=== PATIENT | female | born 1965 | race Caucasian/White ===

== ENCOUNTER 2019-11-01 19:35 | Emergency (ER) | payer OTHER ==
[~2019-11-01] VITALS: Ht 160 cm; Wt 57.6 kg
[~2019-11-01 19:35] MED LIST: ALBUTEROL2.5 MG/3 M INH; CEFUROXIME500 MG PO; DILTIAZEM HCL60 MG PO; DOXYCYCLINE HY100 MG PO; FIORICET 50-301 EACH PO; FLAGYL500 MG PO; IBUPROFEN600 MG PO; IPRAT-ALBUT 0.5-3 ML INH; LIDOCAINE HCL30 M1 MM; NICOTINE LOZENGE4 MG BUCCAL; NORCO 5-325 TA1 EACH PO; OMEPRAZOLE20 MG PO; ONDANSETRON ODT4 MG SL; PREDNISONE20 MG PO; PROAIR HFA8.5 GM INH; ROBAFEN-DM SYR118 ML PO; SPIRIVA RESPIMAT4 GM IH; VENTOLIN HFA18 GM INH
--- OUTSIDE RECORDS SUMMARY | 2019-11-01 19:38 | XMS ---
PreManage Notification: ADRIEN ANTHONY Security Notched Blade Loader Events No recent Security Events currently on file CRITERIA MET - [facility] - 2 Visits in 30 Days CARE PROVIDERS WALDO PRATT Nurse Practitioner: Family Current PHONE: Unknown Juan Manuel Gil Primary Care Current PHONE: [phone] JUAN MANUEL GIL Primary Care Current PHONE: Unknown Inderjit has no Care Guidelines for this patient. Care History Medical/Surgical 10/26/2019 [facility] - CHW RECEIVED- CASE MANAGEMENT CONSULT TO HELP PATIENT WITH ESTABLISHING CARE WITH A PCP. - CHW CALLED 2X AND LEFT A VOICEMAIL. - SENT NO PCP LETTER TO PATIENT. E.D. VISIT COUNT (12 [address] 7 [facility] 2 JEAN[facility] Ortiz TOTAL 9 NOTE: Visits indicate total known visits. ED/UCC VISIT TRACKING (12 MO.) 11/01/2019 19:36 [facility] [place] TYPE: Emergency COMPLAINT: - SOB 10/23/2019 11:29 JEANINE Hong TYPE: Emergency COMPLAINT: - HEADACHE, DIZZINESS DIAGNOSES: - Other assisted (current) drug therapy - Migraine, unsp, not intractable, without status migrainosus - Essential (primary) hypertension - Allergy status to narcotic agent status - Chronic obstructive pulmonary disease, unspecified - Dizziness and giddiness - Nicotine dependence, unspecified, uncomplicated 08/10/2019 02:[place] DIAGNOSES: - foot pain - Sprain of unspecified ligament of right ankle, init encntr - Ankle Pain 06/02/2019 10:43 [place]: [place] DIAGNOSES: - neck pain 05/17/2019 17:51 [facility] TYPE: Emergency DIAGNOSES: - Strain of muscle, fascia and tendon at neck level, init - Neck pain 04/22/2019 16:47 [facility] TYPE: Emergency DIAGNOSES: - Lichen planus, unspecified - Female Genital Issue - Oth bacterial agents as the cause of diseases classd elswhr - Acute vaginitis - "brake out lots of pain" - Candidiasis of vulva and vagina 02/27/2019 07:20 [facility] TYPE: Emergency DIAGNOSES: - Lichen sclerosus et atrophicus - vaginal pain 12/12/2018 14:20 [facility] TYPE: Emergency DIAGNOSES: - fall - Contusion of right front wall of thorax, initial encounter - Back Pain 11/02/2018 08:16 [facility] TYPE: Emergency DIAGNOSES: - Unsp inj musc/tend the rotator cuff of r shoulder, init - Contusion of right shoulder, initial encounter - Shoulder Pain INPATIENT VISIT TRACKING (12 MO.) No inpatient visits to display in this time frame [id number]
[2019-11-01] MEDS ORDERED: ALBUTEROL2.5 MG/3 M INH ×2 (19:50→19:56)
[2019-11-01] MEDS ORDERED: MEDROL4 M1 PO (19:56)
[2019-11-01] MEDS ORDERED: VENTOLIN HFA18 GM INH (19:56)
[2019-11-01] MEDS ORDERED: ZITHROMAX250 MG PO (19:56)
--- NOTE | 2019-11-02 20:49 | EKG ---
[facility] [address] [place], [place] [address] Signed Normal sinus rhythm Possible Anterior infarct , age undetermined Abnormal ECG No previous ECGs available Confirmed by HERNANDEZ BURCH DO ([id number]) on 11/02/2019 8:49:36 PM Electronically Signed By: HERNANDEZ BURCH DO 11/02/19 2049 PATIENT NAME: ADREIN ANTHONY Electrocardiogram DATE OF : 63 PHYSICIAN: HERNANDEZ BURCH DO REPORT #: [id number] REPORT IS CONFIDENTIAL AND NOT TO BE RELEASED WITHOUT AUTHORIZATION
== END 2019-11-01 20:09 | disposition home or self-care (01) ==
LOC: ED 19:35
DX: J44.9 Chronic obstructive pulmonary disease, unspecified (principal); F17.210 Nicotine dependence, cigarettes, uncomplicated
CPT/HCPCS: 93005; 93010; 99283

== ENCOUNTER 2020-04-11 20:06 | Emergency (ER) | payer MEDICAID ==
[~2020-04-11] VITALS: Ht 160 cm; Wt 65.8 kg
--- OUTSIDE RECORDS SUMMARY | ~2020-04-11 | XMS | Encounter Summary ---
Demographics + + + | Address | [address] | | | [place] [address] | + + + | Home Phone | | + + + | Preferred Language | Unknown | + + + | Marital Status | Unknown | + + + | Hindu Affiliation | 1013 | + + + | Race | White | + + + | Ethnic Group | Not or | + + + Author + + + | Author | [facility] | | | and [place] | + + + | Organization | [facility] | | | and [place] | + + + | Address | Unknown | + + + | Phone | Unavailable | + + + Care Team Providers + +------+ + | Care Concrete Handler Name | Role | Phone | + +------+ + PCP | Unavailable | + +------+ + Encounter Details +--------+ + + + + | Date | Type | Department | Care Team | Description | +--------+ + + + + | 01/08/ | Hospital | [facility] | Conversion | ILD (interstitial | | 2016 | Encounter | [facility] [address] | Transaction, | lung disease) ([facility]) | | | | [address] | Provider Unknown | | | | | [place], [place] | [phone] | | | | | [address] | | | | | | [phone] | | | +--------+ + + + + Social History + +-------+ +--------+------+ | Tobacco Use | Types | Packs/Day | Years | Date | | | | | Used | | + +-------+ +--------+------+ | Former Smoker | | | | | + +-------+ +--------+------+ + + + | Sex Assigned at | Date Recorded | | | | + + + | Not on file | | + + + documented as of this encounter Plan of Treatment Not on filedocumented as of this encounter Procedures + +--------+ + + + | Procedure Name | Priori | Date/Time | Associated Diagnosis | Comments | | | ty | | | | + +--------+ + + + | CT CHEST HIGH | Routin | 01/09/2016 | | Results for this | | RESOLUTION WO | e | 3:10 PM | | procedure are in the | | CONTRAST | | PDT | | results section. | + +--------+ + + + documented in this encounter Results CT Chest High Resolution WO Contrast (01/09/2016 3:10 PM PDT) + + | Specimen | + + | | + + + + + | Impressions | Performed At | + + + | 1. Mild interlobular septal thickening and bronchial thickening | | | suggesting some mild/minimal interstitial lung disease. Correlate with | | | pulmonary function studies. | | + + + + + + | Narrative | Performed At | + + + | [facility] YE[facility] CT CHEST HIGH RESOLUTION 01/09/2016 HISTORY: 50 | | | years. Female. Interstitial lung disease Technique: A routine | | | examination of the chest with 5 thick slices at 5 mm intervals was | | | performed in the axial plane throughout the chest with the patient in | | | the supine position. After turning the patient to the prone | | | position, an inspiratory high-resolution examination was performed | | | with 1.25-mm thick slices at 10-mm intervals throughout the chest. An | | | expiratory phase examination was then performed with similar | | | technique. No intravenous contrast was administered. Radiation dose | | | reduction performed with automated exposure control. COMPARISON: | | | None at this facility FINDINGS: CHEST: The thyroid is | | | symmetric and shows no evidence of a solid or cystic mass. No bulky | | | adenopathy is seen in the lower rita stations of the neck, axillary | | | regions, mediastinum or hilar regions. A left-sided aortic arch is | | | noted with a 3 vessel arch configuration. No aneurysm is seen in the | | | aorta or great vessels. The pulmonary arteries are normal in | | | caliber. The heart is normal in size. No pericardial abnormality is | | | noted. Lungs are well expanded there is no infiltrate, effusion, | | | pneumothorax, pulmonary nodule or mass. There is minimal interlobular | | | septal thickening with a upper lobe predominance. There is some mild | | | lateral minimal bronchial thickening appears to be a small amount of | | | debris within the right middle lobe bronchus. There is no mosaic | | | attenuation on axial location images to suggest air trapping/small | | | airways disease. The thoracic esophagus is normal. No hiatal hernia | | | is seen. The muscles of the chest are symmetric. No focal atrophy | | | or soft tissue mass is seen. The osseous structures of the chest do | | | not demonstrate lytic or blastic lesions. Scan was continued into the | | | upper region of the abdomen there is no free air or free fluid. | | + + + + + | Procedure Note | + + | [place], Rad Conversion - 04/01/2019 6:02 PM PDT ADRIEN Jeff DWYERCT CHEST HIGH | | RESOLUTION01/09/2016 HISTORY: 50 years. Female. Interstitial lung diseaseTechnique: A | | routine examination of the chest with 5 thick slices at 5 mm intervals was performed in | | the axial plane throughout the chest with the patient in the supine position. After | | turning the patient to the prone position, an inspiratory high-resolution examination | | was performed with 1.25-mm thick slices at 10-mm intervals throughout the chest. An | | expiratory phase examination was then performed with similar technique. No intravenous | | contrast was administered.Radiation dose reduction performed with automated exposure | | control. COMPARISON:None at this facility FINDINGS: CHEST:The thyroid is symmetric and | | shows no evidence of a solid or cystic mass.No bulky adenopathy is seen in the lower | | rita stations of the neck, axillary regions, mediastinum or hilar regions.A left-sided | | aortic arch is noted with a 3 vessel arch configuration. No aneurysm is seen in the | | aorta or great vessels.The pulmonary arteries are normal in caliber.The heart is normal | | in size. No pericardial abnormality is noted.Lungs are well expanded there is no | | infiltrate, effusion, pneumothorax, pulmonary nodule or mass. There is minimal | | interlobular septal thickening with a upper lobe predominance. There is some mild | | lateral minimal bronchial thickening appears to be a small amount of debris within the | | right middle lobe bronchus. There is no mosaic attenuation on axial location images to | | suggest air trapping/small airways disease.The thoracic esophagus is normal. No hiatal | | hernia is seen.The muscles of the chest are symmetric. No focal atrophy or soft tissue | | mass is seen.The osseous structures of the chest do not demonstrate lytic or blastic | | lesions.Scan was continued into the upper region of the abdomen there is no free air or | | free fluid. IMPRESSION: 1. Mild interlobular septal thickening and bronchial thickening | | suggesting some mild/minimal interstitial lung disease. Correlate with pulmonary | | function studies. | |Scan was continued into the upper region of the abdomen there is no free air or free fluid. | | | |IMPRESSION: | |1. Mild interlobular septal thickening and bronchial thickening suggesting some mild/minim al interstitial lung disease. Correlate with pulmonary function studies. | | | | | + + documented in this encounter Visit Diagnoses + + | Diagnosis | + + | ILD (interstitial lung disease) (HCC) Postinflammatory pulmonary fibrosis | + + documented in this encounter"
--- OUTSIDE RECORDS SUMMARY | ~2020-04-11 | XMS | Encounter Summary ---
Demographics + + + | Address | [address] | | | [place] [address] | + + + | Home Phone | | + + + | Preferred Language | Unknown | + + + | Marital Status | Unknown | + + + | Oriental Orthodox Affiliation | 1013 | + + + | Race | White | + + + | Ethnic Group | Not or | + + + Author + + + | Author | [facility] | | | and [place] | + + + | Organization | [facility] | | | and [place] | + + + | Address | Unknown | + + + | Phone | Unavailable | + + + Care Team Providers + +------+ + | Care Environmental Lawyer Name | Role | Phone | + +------+ + | Malathi Dudley MD | PCP | | + +------+ + Encounter Details +--------+ + + + + | Date | Type | Department | Care Team | Description | +--------+ + + + + | 12/06/ | Orders Only | [facility] | Hong Rodríguez MD | | | 2015 | | [address] | [address] | | | | | [place], [place] | [address] [place], [place] | | | | | [address] | [address] | | | | | [phone] | | | +--------+ + + + [...] | + +--------+ + + + | CBC WITH MANUAL | Routin | 12/07/2015 | | Results for this | | DIFFERENTIAL | e | 11:33 AM | | procedure are in the | | | | PDT | | results section. | + +--------+ + + + | [id number]-[id number], | Routin | 12/07/2015 | | Results for this | | TOTAL | e | 11:33 AM | | procedure are in the | | | | PDT | | results section. | + +--------+ + + + | IMMUNOGLOBULIN E | Routin | 12/07/2015 | | Results for this | | | e | 11:33 AM | | procedure are in the | | | | PDT | | results section. | + +--------+ + + + | COMPREHENSIVE | Routin | 12/07/2015 | | Results for this | | METABOLIC PANEL | e | 11:33 AM | | procedure are in the | | | | PDT | | results section. | + +--------+ + + + documented in this encounter Results Mnfut-7-Cmcuuopzfng, Total (12/07/2015 11:33 AM PDT) + + + + + + | Component | Value | Ref Range | Performed | Pathologist | | | | | At | Signature | + + + + + + | A-1 | 190Comment: Testing | 100 - 200 mg/dL | EXTERNAL | | | Antitrypsin | performed at [facility], [address] | | LAB | | | | [facility] | | | | | | [place] [address] | | | | + + + + + + + + | Specimen | + + | Blood specimen | | (specimen) | + + + +---------+ + + | Performing | Address | City/State/Zipcode | Phone Number | | Organization | | | | + +---------+ + + | EXTERNAL LAB | | | | + +---------+ + + CBC with Manual Differential (12/07/2015 11:33 AM PDT) + + + + + + | Component | Value | Ref Range | Performed | Pathologist | | | | | At | Signature | + + + + + + | WBC | 13.67 (H) | 3.80 - 11.00 | EXTERNAL | | | | | 10*3/uL | LAB | | + + + + + + | Non- | 5.34 (H) | 3.70 - 5.10 | EXTERNAL | | | Red Blood | | 10*6/uL | LAB | | | Cells | | | | | | Counted | | | | | + + + + + + | Hemoglobin | 15.9 (H) | 11.3 - 15.5 | EXTERNAL | | | | | g/dL | LAB | | + + + + + + | Hematocrit, | 48.7 (H) | 34.0 - 46.0 % | EXTERNAL | | | POC | | | LAB | | + + + + + + | MCV | 91.2 | 80.0 - 100.0 fL | EXTERNAL | | | | | | LAB | | + + + + + + | MCH | 29.7 | 27.0 - 34.0 pg | EXTERNAL | | | | | | LAB | | + + + + + + | MCHC | 32.6 | 32.0 - 35.5 | EXTERNAL | | | | | g/dL | LAB | | + + + + + + | RDW-CV | 44.6 | 37 - 53 fL | EXTERNAL | | | | | | LAB | | + + + + + + | Platelet | 311 | 150 - 400 | EXTERNAL | | | Count | | 10*3/uL | LAB | | | Plasma | | | | | + + + + + + | MPV | 10.2 | fL | EXTERNAL | | | | | | LAB | | + + + + + + | Differentia | MANUAL | | EXTERNAL | | | l Type | | | LAB | | + + + + + + | Segmented | 62 | % | EXTERNAL | | | Neutrophils | | | LAB | | | Manual | | | | | + + + + + + | % Bands | 4 | % | EXTERNAL | | | | | | LAB | | + + + + + + | Lymphocytes | 23 | % | EXTERNAL | | | Manual | | | LAB | | + + + + + + | Monocytes | 5 | % | EXTERNAL | | | Manual | | | LAB | | + + + + + + | Eosinophils | 6 | % | EXTERNAL | | | Manual | | | LAB | | + + + + + + | Absolute | 8.48 (H) | 1.90 - 7.40 | EXTERNAL | | | Neutrophils | | 10*3/uL | LAB | | + + + + + + | Bands | 0.55 (H) | 0.00 - 0.20 | EXTERNAL | | | Manual | | 10*3/uL | LAB | | + + + + + + | Absolute | 3.14 | 1.00 - 3.90 | EXTERNAL | | | Lymphocytes | | 10*3/uL | LAB | | + + + + + + | Absolute | 0.68 | 0.00 - 0.80 | EXTERNAL | | | Monocytes | | 10*3/uL | LAB | | + + + + + + | Absolute | 0.82 (H) | 0.00 - 0.50 | EXTERNAL | | | Eosinophils | | 10*3/uL | LAB | | + + + + + + | RBC | RBC AND PLT MORPHOLOGY | | EXTERNAL | | | Morphology | APPEAR NORMAL | | LAB | | + + + + + + | RBC | Testing performed at | | EXTERNAL | | | Morphology | TCL;[address] | | LAB | | | | [address];[place] [address] | | | | + + + + + + + + | Specimen | + + | Blood specimen | | (specimen) | + + + +---------+ + + | Performing | Address | City/State/Zipcode | Phone Number | | Organization | | | | + +---------+ + + | EXTERNAL LAB | | | | + +---------+ + + Immunoglobulin E (12/07/2015 11:33 AM PDT) + + + + + + | Component | Value | Ref Range | Performed | Pathologist | | | | | At | Signature | + + + + + + | Immunoglobu | 155.0Comment: Testing | 0.0 - 158.0 | EXTERNAL | | | radha IgE | performed at [facility], [address] | | LAB | | | | [facility] | | | | | | [place] [address] | | | | + + + + + + + + | Specimen | + + | Blood specimen | | (specimen) | + + + +---------+ + + | Performing | Address | City/State/Zipcode | Phone Number | | Organization | | | | + +---------+ + + | EXTERNAL LAB | | | | + +---------+ + + Comprehensive Metabolic Panel (12/07/2015 11:33 AM PDT) + + + + + + | Component | Value | Ref Range | Performed | Pathologist | | | | | At | Signature | + + + + + + | Na | 140 | 135 - 143 | EXTERNAL | | | | | mmol/L | LAB | | + + + + + + | K | 3.9 | 3.5 - 4.9 | EXTERNAL | | | | | mmol/L | LAB | | + + + + + + | Cl | 99 | 99 - 109 mmol/L | EXTERNAL | | | | | | LAB | | + + + + + + | CO2 | 33 (H) | 23 - 32 mmol/L | EXTERNAL | | | | | | LAB | | + + + + + + | Anion Gap | 12 | 5 - 20 mmol/L | EXTERNAL | | | | | | LAB | | + + + + + + | Glucose, | 96 | 65 - 99 mg/dL | EXTERNAL | | | Fasting | | | LAB | | + + + + + + | BUN | 13 | 8 - 25 mg/dL | EXTERNAL | | | | | | LAB | | + + + + + + | Creatinine | 0.79 | 0.50 - 1.00 | EXTERNAL | | | | | mg/dL | LAB | | + + + + + + | BUN/Creatin | 16 | | EXTERNAL | | | ine Ratio | | | LAB | | + + + + + + | Calcium | 10.2 | 8.5 - 10.5 | EXTERNAL | | | | | mg/dL | LAB | | + + + + + + | Protein, | 6.8 | 6.3 - 8.2 g/dL | EXTERNAL | | | Total | | | LAB | | + + + + + + | Albumin | 4.6 | 3.6 - 5.0 g/dL | EXTERNAL | | | | | | LAB | | + + + + + + | Globulin | 2.2 | 1.3 - 4.9 g/dL | EXTERNAL | | | | | | LAB | | + + + + + + | A/G Ratio | 2.1 | 1.0 - 2.4 | EXTERNAL | | | | | | LAB | | + + + + + + | Bilirubin | 0.3 | 0.1 - 1.5 mg/dL | EXTERNAL | | | Total | | | LAB | | + + + + + + | ALP, | 72 | 35 - 115 U/L | EXTERNAL | | | External | | | LAB | | + + + + + + | AST | 21 | 10 - 45 U/L | EXTERNAL | | | | | | LAB | | + + + + + + | ALT | 27 | 10 - 65 U/L | EXTERNAL | | | | | | LAB | | + + + + + + | Estimated | >60Comment: GFR <60: | | EXTERNAL | | | GFR | CHRONIC KIDNEY DISEASE, | | LAB | | | | IF FOUND OVER A 3 MONTH | | | | | | PERIOD. GFR <15: KIDNEY | | | | | | FAILURE. FOR | | | | | | AMERICANS, MULTIPLY THE | | | | | | CALCULATED GFR BY | | | | | | 1.210.Testing performed | | | | | | at [facility];[address] | | | | | | [place] | | | | | | [address] | | | | + + + + + + + + | Specimen | + + | Blood specimen | | (specimen) | + + + +---------+ + + | Performing | Address | City/State/Zipcode | Phone Number | | Organization | | | | + +---------+ + + | EXTERNAL LAB | | | | + +---------+ + + documented in this encounter Visit Diagnoses Not on filedocumented in this encounter"
--- OUTSIDE RECORDS SUMMARY | ~2020-04-11 | XMS | Clinical Summary ---
Demographics + + + | Address | [address] | | | [place] [address] | + + + | Home Phone | | + + + | Preferred Language | Unknown | + + + | Marital Status | Unknown | + + + | Sabianist Affiliation | 1013 | + + + | Race | White | + + + | Ethnic Group | Not or | + + + Author + + + | Author | [facility] | | | and [place] | + + + | Organization | [facility] | | | and [place] | + + + | Address | Unknown | + + + | Phone | Unavailable | + + + Care Team Providers + +------+ + | Care Freight Brake Operator Name | Role | Phone | + +------+ + | Malathi Dudley MD | PCP | | + +------+ + Allergies Not on File Medications Not on file Active Problems Not on file Family History + + +------+ + | Medical History | Relation | Name | Comments | + + +------+ + | Emphysema | Father | | | + + +------+ + | Heart disease | Father | | | + + +------+ + | COPD | Mother | | | + + +------+ + + +------+ + + | Relation | Name | Status | Comments | + +------+ + + | Father | | Alive | | + +------+ + + | Father | | | | + +------+ + + | Mother | | | | + +------+ + + | Mother | | | | + +------+ + + Social History + +-------+ +--------+------+ [...] on file | | + + + Last Filed Vital Signs + + + + + | Vital Sign | Reading | Time Taken | Comments | + + + + + | Blood Pressure | 136/94 | 12/07/2015 10:07 AM | | | | | PDT | | + + + + + | Pulse | 93 | 12/07/2015 10:07 AM | | | | | PDT | | + + + + + | Temperature | 36.6 C (97.9 F) | 12/07/2015 10:07 AM | | | | | PDT | | + + + + + | Respiratory Rate | - | - | | + + + + + | Oxygen Saturation | - | - | | + + + + + | Inhaled Oxygen | - | - | | | Concentration | | | | + + + + + | Weight | 49.9 kg (110 lb 1.6 | 12/07/2015 10:07 AM | | | | oz) | PDT | | + + + + + | Height | 160 cm (5' 3") | 12/07/2015 10:07 AM | | | | | PDT | | + + + + + | Body Mass Index | 19.5 | 12/07/2015 10:07 AM | | | | | PDT | | + + + + + Plan of Treatment + + +-------+ + | Health Maintenance | Due Date | Last | Comments | | | | Done | | + + +-------+ + | Vaccine: | | | | | Dtap/Tdap/Td (1 - | 4 | | | | Tdap) | | | | + + +-------+ + | Cervical Cancer | | | | | Screening (Pap) | 5 | | | + + +-------+ + | Vaccine: Zoster (1 | | | | | of 2) | 5 | | | + + +-------+ + | Breast Cancer | | | | | Screening | 0 | | | + + +-------+ + | Vaccine: Influenza | | | | | (#1) | 0 | | | + + +-------+ + Results Not on filefrom Last 3 Months
[~2020-04-11 20:06] MED LIST changes: +MEDROL4 M1 PO; +ZITHROMAX250 MG PO
--- OUTSIDE RECORDS SUMMARY | 2020-04-11 20:08 | XMS ---
PreManage Notification: ADRIEN ANTHONY Security Onion Tier Events No recent Security Events currently on file CRITERIA MET - Group Notification CARE PROVIDERS WALDO PRATT Nurse Practitioner: Family Current PHONE: Unknown Inderjit has no Care Guidelines for this patient. Care History Medical/Surgical 10/26/2019 [facility] - W RECEIVED- CASE MANAGEMENT CONSULT TO HELP PATIENT WITH ESTABLISHING CARE WITH A PCP. - CHW CALLED 2X AND LEFT A VOICEMAIL. - SENT NO PCP LETTER TO PATIENT. Jon VISIT COUNT (12 MO.) 4 [facility] 3 [facility] TOTAL 7 NOTE: Visits indicate total known visits. ED/UCC VISIT TRACKING (12 MO.) 04/11/2020 20:06 [facility] [place] TYPE: Emergency COMPLAINT: - CHEST PAIN 11/01/2019 19:36 [facility] [place] TYPE: Emergency COMPLAINT: - SOB DIAGNOSES: - Nicotine dependence, cigarettes, uncomplicated - Shortness of breath - Chronic obstructive pulmonary disease, unspecified 10/23/2019 11:29 [facility] [place] TYPE: Emergency COMPLAINT: - HEADACHE, DIZZINESS DIAGNOSES: - Other exterminator (current) drug therapy - Migraine, unspecified, not intractable, without status migrai - Essential (primary) hypertension - Allergy status to narcotic agent status - Chronic obstructive pulmonary disease, unspecified - Dizziness and giddiness - Nicotine dependence, unspecified, uncomplicated 08/10/2019 02:53 [facility] TYPE: Emergency DIAGNOSES: - foot pain - Sprain of unspecified ligament of right ankle, initial encoun - Ankle Pain 06/02/2019 10:43 [facility] TYPE: Emergency DIAGNOSES: - neck pain 05/17/2019 17:51 [facility] TYPE: Emergency DIAGNOSES: - Strain of muscle, fascia and tendon at neck level, initial en - Neck pain 04/22/2019 16:47 [facility] TYPE: Emergency DIAGNOSES: - Lichen planus, unspecified - Female Genital Issue - Other specified bacterial agents as the cause of diseases cla - Acute vaginitis - "brake out lots of pain" - Candidiasis of vulva and vagina INPATIENT VISIT TRACKING (12 MO.) No inpatient visits to display in this time frame [id number]
[2020-04-11] MEDS ORDERED: BUDESONIDE-FO10.2 G1 INH (20:16)
[2020-04-11] MEDS ORDERED: DICLOFENAC SODI75 MG PO (21:31)
--- NOTE | 2020-04-12 12:30 | EKG ---
[facility] [address] [facility] [place] [address] Signed Normal sinus rhythm Anterior infarct (cited on or before 01-NOV-2019) Abnormal ECG When compared with ECG of 01-NOV-2019 19:45, No significant change was found Confirmed by JANIS LAKE MD ([id number]) on 04/12/2020 12:30:00 PM Electronically Signed By: JANIS LAKE MD 04/12/20 1230 PATIENT NAME: GABRIELLEADRIEN ZUÑIGA Electrocardiogram DATE OF : 63 PHYSICIAN: JANIS LAKE MD REPORT #: [id number] REPORT IS CONFIDENTIAL AND NOT TO BE RELEASED WITHOUT AUTHORIZATION
== END 2020-04-11 21:39 | disposition home or self-care (01) ==
LOC: ED 20:06
DX: R07.9 Chest pain, unspecified (principal); J44.9 Chronic obstructive pulmonary disease, unspecified; I10 Essential (primary) hypertension; F17.200 Nicotine dependence, unspecified, uncomplicated; Z79.899 Other long term (current) drug therapy
CPT/HCPCS: 71045; 80053; 83735; 84484; 85025; 93005; 93010; 96374; 99285-25; J1885

== ENCOUNTER 2022-01-16 16:32 | Inpatient (IN) | payer OTHER ==
[~2022-01-16] VITALS: Ht 160 cm; Wt 61.0 kg
[~2022-01-16 16:32] MED LIST changes: +BUDESONIDE-FO10.2 G1 INH; +DICLOFENAC SODI75 MG PO
[2022-01-16] MEDS ORDERED: ATORVASTATIN CA20 MG PO (18:07)
[2022-01-16] MEDS ORDERED: IBUPROFEN800 MG PO (18:07)
--- NOTE | 2022-01-16 23:07 | NUR ---
PATIENT ARRIVED TO THE FLOOR VIA STRETCHER. PATIENT ABLE TO AMBULATE FROM STRETCHER TO HOSPITAL BED. PATIENT SOB W/ACTIVITY. PATIENTS VITALS TAKEN AND RECORDED. PATIENT IS ON 2L VIA NC. PATIENTS IV FLUSHED AND IN FUSING PER ORDER. IV ABX INFUSING PER ORDER. PATIENT PROVIDED FRESH ICE WATER. NO FURTHER NEEDS NOTED. CALL LIGHT IN REACH. DISCUSSED PLAN OF CARE WITH PATIENT AND ALL QUESTIONS ANSWERED.
--- NOTE | 2022-01-17 00:02 | NUR ---
SCHEDULED KEDAR GIVEN PER ORDER. PATIENTS ABX COMPLETED INFUSING. PRIMARY IV FLUIDS INFUSING. PRN COUGH MEDICATION GIVEN PER ORDER.
--- NOTE | 2022-01-17 00:23 | NUR ---
IV PUMP WAS BEEPING, IT IS NOW INFUSING FINE. PT DENIES FURTHER NEEDS. CALL LIGHT IS CLOSE.
--- NOTE | 2022-01-17 00:41 | NUR ---
PATIENT ASSISTED TO THE RESTROOM A SBA. PATIENT ABLE TO VOID. PATIENT IS BACK IN BED RESTING. PATIENT DENIES ANY NEEDS. CALL LIGHT IN REACH. PATIENT REMAINS ON 2L VIA NC.
--- NOTE | 2022-01-17 01:38 | NUR ---
PATIENT ASSISTED TO THE RESTROOM A SBA. PATIENT ABLE TO VOID. PATIENT IS BACK IN BED RESTING. VITALS TAKEN AND RECORDED. INTAKE AND OUTPUT RECORDED. IV INFUSING PER ORDER. NO NEEDS NOTED. CALL LIGHT IN REACH.
--- NOTE | 2022-01-17 02:18 | NUR ---
PATIENT PROVIDED FRESH ICE WATER PER REQUEST. NO FURTHER NEEDS NOTED. CALL LIGHT IN REACH.
--- NOTE | 2022-01-17 03:39 | NUR ---
PATIENT IS RESTING IN BED WITH EYES CLOSED, RR 19. CALL LIGHT IN REACH.
--- NOTE | 2022-01-17 04:10 | NUR ---
RECEIVED REPORT, FROM JAVA J[employer]EE SOFTWARE ENGINEEROSMANY PRITCHARD. PT IS RESTING WITH EYES CLOSED, RR IS EVEN AND UNLABORED. CALL LIGHT IS CLOSE AND IV IS INFUSING FINE.
--- NOTE | 2022-01-17 06:01 | NUR ---
PT IS RESTING WITH EYES CLOSED, RR IS EVEN AND UNLABORED. CALL LIGHT IS CLOSE, IV IS INFUSING FINE.
--- NOTE | 2022-01-17 06:51 | NUR ---
call light answered, pt up sba to void and back to bed. 700mls output noted. pt back in bed, reports some sob w/ exertion, 94% on 2lnc. will continue to monitor-residing w/ deep breathing. prn tylenol given for reported 5/10 pain r/t headache. iv pump cleared, iv site wnl w/ fluids infusing as directed. no further needs, call light in reach.
--- NOTE | 2022-01-17 07:32 | NUR ---
REPORT RECEIVED FROM NIGHT RN - CARE PLAN REVIEWED.
[2022-01-17] MEDS ORDERED: IPRAT-ALBUT 0.5-3 ML INH (08:06)
[2022-01-17] MEDS ORDERED: AMITRIPTYLINE100 MG PO (08:07)
--- NOTE | 2022-01-17 08:10 | NUR ---
RN IN ROOM TO ADMINISTER SCHEDULED MEIDCAIOTNS - PT RESTING IN BED AWAKE UPON ENTRY. IV SITE TOLERATING FLUIDS AND ABX INFUSTION WITHOUT DIFFICULTY. PT UP TO BATHROOM, AMBULATING TO BATHROOM WITH STANDBY ASSIST - DENIES DIZZINESS, SOB NOTED - 2L VIA NC. HARSH HACKING COUGH NOTED WHICH PRODUCES A HEADACHE. VOIDING QS. CALL LIGHT IN REACH.
[2022-01-17] MEDS ORDERED: DAILY VALUE1 EACH PO (08:45)
[2022-01-17] MEDS ORDERED: DERMOPLAST FIRS78 GM TOP (08:49)
--- NOTE | 2022-01-17 10:32 | NUR ---
RN IN ROOM TO HANG NEW IV FLUID BAG. ABX INFUSION COMPLETE. PT REQUESTS PRN FOR COUGH - ADMINISTERED. PT DENIES FURTHER NEEDS. CALL LIGHT IN REACH.
--- NOTE | 2022-01-17 13:00 | NUR ---
INTO ROOM TO COMPLETE ASSESSMENT. PATIENT SITIING UP IN BED SPEAKING WITH HER FRIEND HENRIQUE AT THE BEDSIDE. PATIENT STATES SHE LIVES IN A HOME WITH HER DAUGHTER ARINA HASSAN. PATIENT PLANS TO DISCHARGE HOME WHEN STABLE. PATIENT DOES NOT REQUIRE DME AT THIS TIME. PATIENT IS ESTABLISHED WITH DR. ANGELO AND USES [facility]. SHE DENIES FINANCIAL NEEDS AT THIS TIME. PATIENT WISHES TO ADD FRIEND HENRIQUE MORRIS [phone] TO HER CONTACT IF WE ARE NOT ABLE TO REACH HER DAUGHTER.
--- NOTE | 2022-01-17 14:33 | NUR ---
RN IN ROOM TO ASSESS PT - AWAKE AND RESTING IN BED WATCHING TV. PRN COUGH MEDS REQUESTED AND ADMINISTERED. PT DENIES ANY FURTHER NEEDS. ASSESSMENT COMPLETE - UNCHANGED FROM PREVIOUS SHIFT. CALL LIGHT IN REACH.
--- NOTE | 2022-01-17 14:41 | NUR ---
MED REC COMPLETE
--- NOTE | 2022-01-17 18:16 | NUR ---
RN IN ROOM TO ADMINISTER SCHEDULED MEDS - PT RESTING IN BED WATCHING TV. CONTINUES TO HAVE 02 SAT IN MID 90'S ON 2L NC. EDUCATION PROVIDED REGARDING CAFFENIE AND HER INTAKE OF ENERGY DRINKS. PT DENIES FURTHER NEEDS, CALL LIGHT IN REACH.
--- NOTE | 2022-01-17 19:25 | NUR ---
SHIFT REPORT RECEIVED FROM RICHARD ROSSI. pt AWAKE AND RESTING IN BED, ON 2LNC. SBA TO VOID AND BACK TO BED, 300MLS OUTPUT NOTED. pt STATES, "I'M FEELING BETTER THAN I WAS EARLIER". IV SITE WNL, FLUIDS INFUSING DIRECTED. BRISK BLOOD RETURN NOTED. WILL CONTINUE TO MONITOR, CALL LIGHT IN REACH AND BOARD UPDATED.
--- NOTE | 2022-01-17 21:12 | NUR ---
ASSESSMENT COMPLETE, SCHEDULED MEDS GIVEN (SEE EMAR). pt AWAKE AND ALAERT IN BED. DRY OCCAS COUGH NOTED, SCATTERED EXP WHEEZES HEARD W/ AUSCULTATION, SCHEDULED BREATHING TREATMENT GIVEN. pt DENIES PAIN OR NAUSEA, VOIDING QS. VSS. REMAINS ON 2LNC, NO DISTRESS. CALL LIGHT IN REACH. WILL MONITOR FOR CHANGES.
--- NOTE | 2022-01-17 22:20 | NUR ---
PT CALLED D/T BEEPING IV PUMP, IT IS NOW INFUSING FINE. PT DENIES FURTHER NEEDS, CALL LIGHT IS CLOSE.
--- NOTE | 2022-01-17 23:03 | NUR ---
pt RESTING QUIETLY IN BED, 2LNC REMAINS IN PLACE. NO DISTRESS NOTED. CALL LIGHT IN REACH. RR EVEN AND UNLABORED.
--- NOTE | 2022-01-18 00:13 | NUR ---
ROUNDED ON pt, pt RESTING QUIETLY IN BED, AWOKE WHILE ASSESSING IV SITE. IV SITE WNL, pt DENIES PAIN AT SITE, FLUIDS INFUSING DIRECTED. 2LNC REMAINS IN PLACE, pt OFFERED SCHEDULED BREATHING TREATMENT- pt DECLINED. CALL LIGHT IN REACH.
--- NOTE | 2022-01-18 02:08 | NUR ---
IV PUMP ALARMING, ISSUE RESOLVED. IV SITE WNL, pt DENIES PAIN OR DISCOMFORT AT SITE. FLUIDS INFUSING DIRECTED. pt DENIES PAIN AND NAUSEA, TITRATED FROM 2LNC TO 1.5LNC, SPO2 UPPER 90'S. LIGHT SCATTERED EXP WHEEZES REMAINS NOTED, NO DISTRESS HOWEVER. pt INDEPENDENT IN ROOM. CALL LIGHT IN REACH.
--- NOTE | 2022-01-18 04:01 | NUR ---
ROUNDED ON pt, pt RESTING QUIETLY WITH EYES CLOSED, RR EVEN AND UNLABORED. NO DISTRESS NOTED. 1.5LNC REMAINS IN PLACE, CALL LIGHT AND OTHER BELONGINGS REMAINS IN REACH OF pt.
--- NOTE | 2022-01-18 04:06 | NUR ---
0400 BREATHING TREATMNET HELD pt IS SLEEPING.
--- NOTE | 2022-01-18 05:25 | NUR ---
rounded on pt, pt awake and resting in bed. titrated to 1lnc, educated on poc regarding oxygen therapy and plan to titrate to ra when able, pt verbalized understanding. iv site wnl, fluids infusing as directed. iv pump cleared. call light in reach and fresh coffee provided.
--- NOTE | 2022-01-18 07:20 | NUR ---
REPORT RECEIVED FROM NIGHT RN - CARE PLAN REVIEWED.
--- NOTE | 2022-01-18 09:30 | NUR ---
RN IN ROOM TO ASSESS PT AND ADMINISTER SCHEDULED MEDICATIONS. PT RESTING IN ROOM AWAKE, STATES SHE FEELS BETTER TODAY BUT IS SAD SHE WILL NOT BE DISCHARGED TODAY. PT TITRATED TO ROOM AIR FROM 1L. EDUCATED PT THAT SHE WILL NEED TO BE CAUTIOUS OF SOB/DIZZINESS WHILE AMBULATING TO BATHROOM. PT DENIES PAIN OR NEED FOR COUGHT PRN. IV SITE TOLERATING FLUIDS AND ABX WITHOUT DIFFICULTY. CALL LIGHT IN REACH.
--- NOTE | 2022-01-18 11:31 | NUR ---
RN AND STUDENT NURSE ROUNDING ON PT - SP02 93% ON ROOM AIR - NO DISTRESS NOTED, TALKING TO VISITORS.
--- NOTE | 2022-01-18 13:47 | NUR ---
RN IN ROOM TO IV SO PT CAN SHOWER. PT STABLE ON ROOM AIR SITH SP02 AT MID 90S.
[2022-01-18] MEDS ORDERED: BUDESONIDE-FO10.2 G1 INH (16:31)
[2022-01-18] MEDS ORDERED: OSELTAMIVIR PHO75 MG PO (16:31)
[2022-01-18] MEDS ORDERED: PREDNISONE20 MG PO (16:33)
--- NOTE | 2022-01-18 17:35 | NUR ---
RN IN ROOM TO ADMINISTER SCHEDULED MEDICATIONS. PT RESTING IN BED WATCHING TV AND EATING DINNER. STABLE ON ROOM AIR. DENIES FURTHER NEEDS, CALL LIGHT IN REACH.
--- NOTE | 2022-01-18 18:01 | NUR ---
RN IN ROOM TO ASSESS PT - PT JUST GETTING BACK TO BED FROM SHOWER. SOME SOB NOTED BUT SP02 IN MID 90'S ON ROOM AIR EVEN WITH AMBULATION. EXPIRATORY WHEEZES STILL NOTED IN LUNG BASES. PT DENIES PAIN. CALL LIGHT IN REACH.
--- NOTE | 2022-01-18 18:54 | NUR ---
PT USES CALL LIGHT TO REQUEST PRN FOR COUGH - ADMINISTERED. PT DENIES FURTHER NEEDS.
--- NOTE | 2022-01-18 19:20 | NUR ---
RECEIVED REPORT FROM ENID CERON DAYSDEFT. PT IN BED, WATCHING TV.
--- NOTE | 2022-01-18 22:00 | NUR ---
ROUNDING IN PT ROOM TO PASS HS MEDICATIONS, PT DENIES PAIN OR SIGNIFICANT COUGH, SHE SAID SHE WOULD LIKE A SPRITE THIS IS PROVIDED. NO OTHER CONCERNS, EDUCATION PROVIDED ON MEDICATIONS WITH QUESTIONS ANSWERED, ALSO DISCUSSED NASAL RINSES WITH SALINE FLUSH/RINSE WHEN ONE HAS NASAL CONGESTION, PT REPORTS HER DAUGHTER THAT LIVES WITH HER REMAINS WITH A LOW GRADE TEMP AND HAS NASAL CONGESTION WELL. PT JOKES AND LAUGHS WITH THIS RN, SHE REPORTS SHE FEELS SO MUCH BETTER.
--- NOTE | 2022-01-18 22:45 | NUR ---
ASSESSMENT COMPLETED. PT IN BED, HAD JUST FINISHED TALKING ON PHONE. EAGER TO BE DISCHARGED EARLY FRIDAY. IV SL, FLUSHES WELL, NO BLOOD RETURN. RA, DENIES ANY SOB, STATES SHE FEELS SO MUCH BETTER. APPRECIATES HER CARE. PLAN OF CARE DISCUSSED. PT ENCOURAGED TO CALL FOR COUGH MEDICINE NEEDED. DENIED SOB, IS INDEPENDENT IN ROOM. FRESH ICE WATER GIVEN. NO OTHER NEEDS AT THIS TIME.
--- NOTE | 2022-01-19 00:51 | NUR ---
PT REQUESTED WARM BLANKET, GIVEN. UP TO BATHROOM, VOIDED, STATES SHE HAS BEEN SLEEPING, BUT WOKE FOR THE BREATHING TREATMENT. PT AWARE THAT SHERRY WILL BE ASSUMING CARE. NO OTHER NEEDS AT THIS TIME.
--- NOTE | 2022-01-19 02:50 | NUR ---
PT RESTING ON HER RIGHT SIDE, RESP EVEN, REGULAR AT 18 BPM, NO DISTRESS NOTED. NO NEW CONCERNS AT THIS TIME.
--- NOTE | 2022-01-19 06:01 | NUR ---
PT ALERT AND ORIENTED THIS AM, NO NEW CONCERNS THIS SHIFT. PT LOOKING FORWARD TO POSSIBLE DISCHARGE TODAY. ROOM AIR, AFEBRILE, NO PAIN AND NO NAUSEA.
--- NOTE | 2022-01-19 07:29 | NUR ---
REPORT RECEIVED FROM NIGHT RN - CARE PLAN AND AM LABS REVIEWED.
[2022-01-19] MEDS ORDERED: OSELTAMIVIR PHO75 MG PO (09:22)
[2022-01-19] MEDS ORDERED: PREDNISONE20 MG PO (09:22)
--- NOTE | 2022-01-19 09:43 | NUR ---
RN IN ROOM TO ADMINISTER SCHEDULED MEDICATIONS AND ASSESS PT - PT RESTING IN BED WATCHING TV. PT STABLE ON ROOM AIR - EXPIRATORY WHEEZING NOTED IN BASES, NOT WORSENED. IV SITE TOLERATING ABX WITHOUT DIFFICULTY. PT EXCITED TO BE DC'D.
--- NOTE | 2022-01-19 10:25 | NUR ---
RN IN ROOM TO DC IV. IV SITE INFILTRATED QUICKLY AFTER ABX INFUSION STARTED. MD NOTIFIED AND DID NOT WISH TO REPEAT DOSE. STATES OK TO PULL IV. PT UP IN ROOM GETTING DRESSED. WAITING ON PHARMACY CONSULT.
--- NOTE | 2022-01-19 11:23 | NUR ---
RN IN ROOM TO PROVIDE DC EDUCATION. PT STATES UNDERSTANDING AND DENIES QUESTIONS AT THIS TIME. SPINNING FRAME CHANGER WHEELING PT OFF FLOOR.
== END 2022-01-19 11:25 | disposition home or self-care (01) | DRG 190 ==
LOC: ED 16:32 → MS 21:27
PROVIDERS: ADMIT Internal Medicine; ATTEND Internal Medicine
DX: J44.1 Chronic obstructive pulmonary disease with (acute) exacerbation (principal); J09.X1 Influenza due to identified novel influenza A virus with pneumonia; I10 Essential (primary) hypertension; E78.5 Hyperlipidemia, unspecified; Z87.2 Personal history of diseases of the skin and subcutaneous tissue; Z87.891 Personal history of nicotine dependence; Z90.49 Acquired absence of other specified parts of digestive tract; Z98.890 Other specified postprocedural states; Z98.51 Tubal ligation status; Z79.51 Long term (current) use of inhaled steroids; Z79.899 Other long term (current) drug therapy; Z20.822 Contact with and (suspected) exposure to COVID-19; F12.90 Cannabis use, unspecified, uncomplicated; G43.909 Migraine, unspecified, not intractable, without status migrainosus
CPT/HCPCS: 36415; 71045; 80048; 80053; 83605; 85025; 87502; 94640; 94760; 96374; 99285-25; A9270; C9803; J0456; J1650; J2920; J2930; J3480; J7060; J7512; U0003

== ENCOUNTER 2022-12-10 09:32 | Inpatient (IN) | payer OTHER ==
[~2022-12-10] VITALS: Ht 160 cm; Wt 62.3 kg
[~2022-12-10 09:32] MED LIST changes: +AMITRIPTYLINE100 MG PO; +ATORVASTATIN CA20 MG PO; +DAILY VALUE1 EACH PO; +DERMOPLAST FIRS78 GM TOP; +IBUPROFEN800 MG PO; +OSELTAMIVIR PHO75 MG PO
[2022-12-10] MEDS ORDERED: INCRUSE ELLI62.5 MCG IH (13:19)
--- NOTE | 2022-12-10 17:15 | NUR ---
PT ARRIVED TO ROOM 113 AT THIS TIME ALERT AND ORIENTED, SHE REPORTS NAUSEA AND PAIN IS MANAGED AT THIS TIME. SHE AMBULATED TO THE BATHROOM TO VOID. NO V/S STABLE
[2022-12-10 17:23] VITALS: BP 147/80
--- NOTE | 2022-12-10 19:34 | NUR ---
REPORT RECEIVED FROM OSMANY APODACA. pt RESTING IN BED AWAKE, VISITING WITH DAUGHTER. RATES PAIN 7/10 IN RUQ. IVF INFUSING WNL. CALL LIGHT IN REACH.
[2022-12-10 19:47] VITALS: BP 127/65
--- NOTE | 2022-12-10 20:10 | NUR ---
PRN PAIN MEDICATION ADMINISTERED FOR 7/10 REPORTED RUQ PAIN. ASSESSMENT COMPLETE. LIBRADO TONES ACTIVE X4, ABD SOFT, TENDER RUQ WITH PALPATION. WHEEZES AUSCULTATED THROUGHOUT LUNG LOBES. VSS. URINE HAT EMPTIED. PHONE CALL TO MD, TELEPHONE ORDER RECEIVED FOR IV POTASSIUM REPLACEMENT, REPEATED BACK TO VERIFY. RT IN ROOM FOR BREATHING TREATMENT. DAUGHTER AT BEDSIDE.
--- NOTE | 2022-12-10 20:24 | NUR ---
IV SITE ASSESSED, POTASSIUM RIDER INFUSING WNL. pt EDUCATION PROVIDED. CALL LIGHT IN REACH.
--- NOTE | 2022-12-10 21:27 | NUR ---
pt CALLS AND COMPLAINS OF PAIN AT IV SITE, SMALL BLEB NOTED ABOVE IV SITE, IVF AND K RIDER STOPPED. IV SITE D/C'D WNL. NEW 20 G IV STARTED RIGHT FOREARM WNL, pt TOLERATED WELL. IVF AND IV K RIDER INFUSING WNL ORDERED. SBA TO RESTROOM FOR VOID AND BACK TO BED. CALL LIGHT IN REACH.
--- NOTE | 2022-12-10 23:10 | NUR ---
pt RESTING IN BED, EYES CLOSED, BREATHING UNLABORED. IV POTASSIUM RIDER COMPLETE. IV ANTIBIOTIC ADMINISTERED. THIRD POTASSIUM RIDER INFUSING WNL. CALL LIGHT IN REACH.
--- NOTE | 2022-12-11 00:20 | NUR ---
pt RESTING IN BED WITH EYES CLOSED, BREATHING UNLABORED. IV POTASSIUM RIDER INFUSING WNL. NO DISTRESS NOTED. pt SHIFTING IN BED. CALL LIGHT IN REACH.
[2022-12-11 01:50] VITALS: BP 137/65
--- NOTE | 2022-12-11 02:01 | NUR ---
pt SLEEPING, AWAKENS TO VOICE. COMPLAINS OF 5/10 EPIGASTRIC PAIN. DESCRIBES DULL PAIN. ASSESSMENT COMPLETE. PRN PAIN MEDICATION ADMINISTERED REQUESTED BY pt. IVF INFUSING WNL. WARM BLANKET PROVIDED, TEMPERATURE IN ROOM ADJUSTED. CALL LIGHT IN REACH. pt DENIES TOILETING NEEDS.
--- NOTE | 2022-12-11 05:27 | NUR ---
CHECKED ON pt. RESTING IN BED WITH EYES CLOSED, SNORING. IVF INFUSING WNL. NO DISTRESS NOTED.
[2022-12-11 06:20] VITALS: BP 152/65
--- NOTE | 2022-12-11 06:41 | NUR ---
pt SLEEPING, AWAKENS TO VOICE. VSS. pt DENIES ANY PAIN. SBA TO RESTROOM FOR VOID. BACK IN BED, IV ANTIBIOTIC INFUSING WNL. WARM BLANKET PROVIDED. CALL LIGHT AND PERSONAL SUPPLIES IN REACH.
--- NOTE | 2022-12-11 07:22 | NUR ---
REPORT RECEIVED FROM WES CERON, ALL QUESTIONS ANSWERED. PT RESTING IN BED WITH EYES CLOSED, RESPIRATIONS EVEN AND UNLABORED. CALL LIGHT IN REACH.
--- NOTE | 2022-12-11 10:15 | NUR ---
MORNING ASSESSMENT COMPLETE. PT C/O 02/24 ABD PAIN, GIVEN PRN PAIN MEDICATION, SEE EMAR. ACTIVE BOWEL TONES. PT DENIES FURTHER NEEDS AT THIS TIME. CALL LIGHT IN REACH.
[2022-12-11] MEDS ORDERED: VENTOLIN HFA18 GM INH (10:18)
[2022-12-11 11:01] VITALS: BP 129/61
--- NOTE | 2022-12-11 12:43 | NUR ---
IN ROOM WITH DR ROMERO ROUNDING ON PT. PT STATES PAIN HAS IMPROVED SINCE PAIN MEDICATION ADMINISTRATION, SEE EMAR. PT DENIES FURTHER NEEDS AT THIS TIME. CALL LIGHT IN REACH.
[2022-12-11 13:51] VITALS: BP 131/62
--- NOTE | 2022-12-11 16:00 | NUR ---
Spoke with Shanell. She lives in house with her daughter. House does not have any steps. She states her daughter is very helpful to her. Pt works at [employer] and daughter works at [employer] as an aid. They split chores and costs. They both drive but do not have a car. Pt states she will no longer have food stamps after the end of this months. I gave her the names of food stock in our area. She has used [employer] in the past. She states financially they are ok as they share cost. Plans on dc to home when medically cleared.
[2022-12-11] MEDS ORDERED: ALBUTEROL2.5 MG/3 M NEB (16:11)
--- NOTE | 2022-12-11 16:53 | NUR ---
CALL LIGHT ANSWERED, PATIENT NEEDED ASSISTANCE WITH DINNER TRAY/TABLE. FRESH ICE WATER PROVIDED.
[2022-12-11 17:45] VITALS: BP 144/75
--- NOTE | 2022-12-11 19:52 | NUR ---
REPORT RECEIVED FROM OSMANY ZUNIGA. pt ITCHING ALL OVER BODY, SHIFTING IN BED. EFRAIN RECEIVED TELEPHONE ORDERS FOR PRN MEDICATION. TORADOL ADDED TO ALLERGY LIST. MEDICATION ADMINISTERED BY DAYSHIFT OSMANY ZUNIGA. DAUGHTER AT BEDSIDE.
[2022-12-11 20:02] VITALS: BP 124/68
--- NOTE | 2022-12-11 20:21 | NUR ---
pt RESTING IN BED. ASSESSMENT COMPLETE. pt RATES PAIN 5/10 IN EPIGASTRIC AREA. IV SITE FLUSHED WNL, BLOOD RETURN NOTED. IVF INFUSING WNL. JELLO PROVIDED. CALL LIGHT IN REACH.
--- NOTE | 2022-12-11 22:25 | NUR ---
IN ROOM FOR ANTIBIOTIC ADMINISTRATION. pt RESTING IN BED WITH EYES CLOSED. BREATHING UNLABORED. IV ANTIBIOTIC INFUSING WNL. pt STIRS SLIGHTLY WHEN RN EXPLAINS CARES, CLOSES EYES. CALL LIGHT WITHIN REACH. LIGHTS OFF IN ROOM.
--- NOTE | 2022-12-12 01:08 | NUR ---
pt RESTING IN BED, EYES CLOSED, RR 12, BREATHING UNLABORED. NO DISTRESS NOTED.
[2022-12-12 06:20] VITALS: BP 139/75
--- NOTE | 2022-12-12 06:41 | NUR ---
pt SLEEPING, AWAKENS TO VOICE. VSS. SBA TO RESTROOM FOR VOID AND BACK TO BED. pt RATES PAIN 6/10 IN EPIGASTRIC AREA. PRN PAIN MEDICATION ADMINISTERED. pt NPO. ASSESSMENT COMPLETE. NEW BAG IVF INFUSING WNL. CALL LIGHT IN REACH.
--- NOTE | 2022-12-12 07:33 | NUR ---
RECIEVED SHIFT REPORT. PT IS RESTING IN BED, EYES CLOSED, BREATHING EVEN AND UNLABORED. CALL LIGHT IN REACH.
[2022-12-12 09:28] VITALS: BP 123/82
--- NOTE | 2022-12-12 10:14 | NUR ---
MED REC COMPLETE
--- NOTE | 2022-12-12 11:00 | NUR ---
Spoke with Shanell, states she feels better, but pain cont. States she will have an EGD today. No need from CM at this time.
--- NOTE | 2022-12-12 11:54 | NUR ---
PT RESTING IN BED EYES CLOSED. BREATHING EVEN AND UNLABORED. CALL LIGHT IN REACH
--- NOTE | 2022-12-12 12:56 | NUR ---
PT RESTING IN BED, EYES CLOSED, BREATHING EVEN AND UNLABORED. CALL LIGHT IN REACH
[2022-12-12 13:58] VITALS: BP 129/63
--- NOTE | 2022-12-12 15:52 | NUR ---
12/12/22 1552 Aysha Romero 1548- PT ARRIVES TO PACU REACTIVE TO VOICE. PT EASILY FALLS BACK TO SLEEP WHEN NOT BEING TALKED TO. RESP EVEN AND UNLABORED. OXYGEN SAT LOW 90'S ON RA. 1551- PT ENOCURAGED TO TAKE DEEP BREATHS. PT IS ABLE TO GET A COUPLE OF DEEP BREATHS COMPLETED BEFORE FALLING BACK TO SLEEP.
--- NOTE | 2022-12-12 16:25 | NUR ---
PT RETURNED TO ROOM FROM SURGERY, BEDSIDE REPORT RECIEVED FROM OSMANY العلي. VSS. PAIN 4/10, TOLERABLE. BOWEL TONES ACTIVE IN ALL QUADRANTS, NON TENDER. PT ABLE TO AMBULATE SBA, TO BATHROOM. CALL LIGHT IN REACH.
[2022-12-12 18:14] VITALS: BP 153/63
--- NOTE | 2022-12-12 19:05 | NUR ---
REPORT RECEIVED FORM OSMANY JONES. PT SITTING UP IN BED ON CELL PHONE. PT DENIES ANY NEEDS AT THIS TIME. CALL LIGHT IN REACH.
[2022-12-12 21:48] VITALS: BP 147/68
--- NOTE | 2022-12-12 21:55 | NUR ---
IN TO ADMINISTER MEDICATION. PT RESPONDS WHEN ADDRESSED. VITALS AND I&Os COMPLETE. ASSESSMENT COMPLETE. PT REPORTING PAIN 1/10 AND DENIES ANY PAIN MEDICATION WHEN OFFERED. LUNG SOUNDS CLEAR. BOWEL TONES ACTIVE. PT REPORTS ABD TENDERNESS WITH PALPATION ON RUQ AND LUQ. BURN HELIO NOTED TO PTs RIGHT ARM. PT STATES "I BURNT MYSELF ON A AZEVEDO AT WORK." BRUISE NOTED TO PTs LEFT FOREARM PT STATES "THAT IS FROM THEM DRAWING BLOOD." WATER PROVIDED. PT REQUESTING PUDDING AND CRACKERS, PUDDING AND CRACKERS PROVIDED. PT DENEIS ANY OTHER NEEDS AT THIS TIME. CALL LIGHT IN REACH.
--- NOTE | 2022-12-12 22:30 | NUR ---
IN PT IV PUMP ALARMING, RESOLVED. PT DENIES ANY NEEDS AT THIS TIME. CALL LIGHT IN REACH.
--- NOTE | 2022-12-12 23:58 | NUR ---
IN TO ANSWER CALL LIGHT. IV PUMP ALARMING, RESOLVED. PT DENIES ANY OTHER NEEDS AT THIS TIME. CALL LIGHT IN REACH.
[2022-12-13] VITALS (9 sets, daily range): BP systolic 137–162; BP diastolic 63–81
--- NOTE | 2022-12-13 00:05 | NUR ---
pt MADE NPO AT THIS TIME. LIQUIDS REMOVED PER MD ORDER, pt VERBALIZED UNDERSTANDING. pt UP INDEPENDENTLY TO VOID, INDEPENDENT IN ROOM. NO SLIP SOCKS IN PLACE.
--- NOTE | 2022-12-13 02:22 | NUR ---
IN TO OBTAIN VITALS. PT RESTING IN BED WITH EYES CLOSED. RR EVEN AND UNLABORED. PT AWAKENS WHEN ADDRESSED. PT REQUESTING TOILTEING. PT AMBULATED WITH STEADY GAIT TO RESTROOM AND BACK TO BED. PT REPORTING PAIN 6/10 IN UPPER ABD. PT REQUESTING PRN PAIN MEDICATION. PRN PAIN MEDICATION ADMINISTRED, SEE MAR. ASSESSMENT COMPLETE. LUNG SOUNDS INSPIRATORY WHEEZE THROUGHOUT ALL LOBES. BOWEL TONES ACTIVE. PT REPORTS ABD TENDERNESS WITH PALPATION TO UPPER ABD. VITALS AND I&Os COMPLETE. PT DENIES ANY OTHER NEEDS AT THIS TIME. CALL LIGHT IN REACH.
--- NOTE | 2022-12-13 05:31 | NUR ---
IN TO ADMINISTER MEDICATION, SEE MAR. VITALS AND I&Os COMPLETE. PT REPORTS PAIN 11/25. PT DENIES PRN PAIN MEDICATION WHEN OFFERED. PT AMBULATES TO RESTROOM AND BACK TO BED WITH STEADY GAIT. CONSENT FORM SIGNED. PT DENIES ANY OTHER NEEDS AT THIS TIME. CALL LIGHT IN REACH.
--- NOTE | 2022-12-13 06:08 | NUR ---
IN TO ANSWER CALL LIGHT. IV PUMP ALARMING, RESOLVED. PT DENIES ANY OTHER NEEDS AT THIS TIME. PT LAYING IN BED AND CLOSES EYES. RR EVEN AND UNLABORED. CALL LIGHT IN REACH.
--- NOTE | 2022-12-13 07:56 | NUR ---
RECIEVED BEDSIDE REPORT FROM OSMANY ALVAREZ. PT IS SLEEPING SOUNDLY. NO NEEDS AT THIS TIME. PT CALLED DURING ROUNDS, C/O SEVERE PAIN AFTER COUGHING. ROUNDED WITH DR ROMERO. HE IS PLANNING ON SURGERY TODAY. WILL GET SHOWER AND WIPE DOWN COMPLETE.
--- NOTE | 2022-12-13 09:15 | NUR ---
PT CALL LIGHT ON. PUMP ALARMING, IV FLUIDS COMPLETE. IV ASSESSED, WNL. NEW IV FLUID BAG HUNG. PT RPEORTS ABDOMINAL PAIN AT 2/10 THAT IS "PRETTY GOOD RIGHT NOW." PT DENIES NEED FOR ADDITIONAL PAIN MEDICATION. PTS PRIMARY RN UPDATED. NO ADDITIONAL REQUESTS OR COMPLAINTS. CALL LIGHT WITHIN REACH. BED RAILS UP.
--- NOTE | 2022-12-13 10:41 | NUR ---
PT IS DOING PRE-OP WIPE DOWN WITH MOTOR RACER.
--- NOTE | 2022-12-13 10:53 | NUR ---
PT FINISHED WITH WIPE DOWN AND SHOWER. IV ASSESSED, WNL, IV FLUIDS RESTARTED. PT DENIES ADDITIONAL REQUESTS OR COMPLAINTS. CALL LIGHT WITHIN REACH. BED RAILS UP.
--- NOTE | 2022-12-13 12:20 | NUR ---
PT IS SLEEPING QUIETLY. RESP EVEN AND UNLABORED. DID NOT WAKE TO ME AT THE DOOR.
--- NOTE | 2022-12-13 13:51 | NUR ---
PER LIZ CHAPMAN RN, PATIENT HAS NOT YET GONE TO THE OR. NO CHANGE IS DISCHARGE PLAN AT THIS TIME.
--- NOTE | 2022-12-13 14:08 | NUR ---
MEDICATION DUE. PT UPDATED REGARDING PLAN OF CARE. PT VERALIZES UNDERSTANDING AND STATES HER QUESTIONS HAVE BEEN ANSWERED. PT DENIES ADDITIONAL REQUESTS OR COMPLAINTS. CALL LIGHT WITHIN REACH. BED RAILS UP. PT REPORTS PAIN IS WELL CONTROLLED.
--- NOTE | 2022-12-13 17:33 | NUR ---
PT IS AWAKE AND ALERT, PLAYING GAMES WITH HER DAUGHTER. IS ANXIOUS FOR SURGERY, ADVISED WE WILL LET HER KNOW PLAN SOON WE KNOW.
--- NOTE | 2022-12-13 19:22 | NUR ---
PT WENT TO SURGERY AT 1805. NPO ALL DAY. A & O. NO COMPLAINTS.
--- NOTE | 2022-12-13 19:28 | NUR ---
Received bedside report from offgoing shift, hourly rounding initiated.
--- NOTE | 2022-12-13 20:10 | NUR ---
pt ARRIVED TO [facility] FLOOR, pt AWAKE AND INTERACTIVE WITH GLUE REEL OPERATOR. VSS, pt ON RA. RR EVEN AND UNLABORED. PRIMARY RN LAVON IN ROOM TO RECEIVE BEDSIDE REPORT. CALL LIGHT IN REACH.
--- NOTE | 2022-12-13 20:36 | NUR ---
12/13/222035 Mary Copeland 1920 PT ARRIVED TO PACU WITH ORAL AIRWAY IN PLACE, RESP EVEN AND UNLABORED. PT NONAROUSABLE WITH 6L VIA MASK IN PLACE. 1927 PT REACTIVE TO TACTILE STIMULI AND STARTS MOVING HER HEAD. 1930 PT STARTS REACHING FOR HER FACE AND ORAL AIRWAY REMOVED, PT START MOANING AND ROLLING TO RIGHT SIDE. PT GRABBING HER ABD AND NODS "YES" TO PAIN. 1934 PAIN MEDICATION GIVEN PER EMAR. 1935 PT GRABBING AT O2 MASK, O2 REMOVED. 1939 PT ASLEEP AND RN WAKES PT OFF AND ON AND ENCOURAGES DEEP BREATHING, PT FALLS RIGHT BACK TO SLEEP, PT UNABLE TO RATE PAIN AT THIS TIME. O2 NC PLACE WITH CO2 MONITOR. NO MOANING OR GRIMACING NOTED. 1940 MD AT BEDSIDE TALKING TO PT, PT UNABLE TO REMAIN AWAKE AND FALLS BACK TO SLEEP WHILE MD IS TALKING.
--- NOTE | 2022-12-13 20:58 | NUR ---
pt CONNECTED TO CPOX, ON RA. SPO2 AND HR WNL. NEW BAG IV FLUIDS HUNG AND INFUSING DIRECTED. CALL LIGHT IN REACH. FAMILY ALSO IN ROOM.
--- NOTE | 2022-12-13 22:00 | NUR ---
GAG REFLEX INTACT, pt REQUESTING WATER AND JELLO-BOTH PROVIDED. pt UP SBA TO BSC TO VOID. VOIDED 300MLS. SCD'S BACK IN PLACE AND CALL LIGHT IN REACH.
--- NOTE | 2022-12-13 22:11 | NUR ---
IN PT ROOM FOR ROUNDING, MEDICATION ADMINISTRATION, ASSESSMENT, VS. PT HAS NO COMPLAINT OF PAIN, IS MEDICATION COMPLIANT, CALL LIGHT IN REACH.
--- NOTE | 2022-12-13 23:51 | NUR ---
IN PT ROOM FOR ROUNDING. PT RESTING ON BACK, REQUESTING PUDDING, PROVIDED. PT HAS NO COMPLAINT OF PAIN, HAS CALL LIGHT IN REACH
--- NOTE | 2022-12-14 00:38 | NUR ---
IN PT ROOM FOR ROUNDING. PT RESTING ON BACK, EYES CLOSED, BREATHING EVEN AND UNLABORED, NO INDICATION OF PAIN OR DISCOMFORT. PT HAS CALL LIGHT IN REACH
[2022-12-14 01:33] VITALS: BP 129/65
--- NOTE | 2022-12-14 01:37 | NUR ---
IN pt room for rounding. Pt up to the restroom, minor complaint of pain, requesting tylenol, provided. Pt ambulates without issue, call light in reach
--- NOTE | 2022-12-14 03:21 | NUR ---
IN pt room for rounding. Pt resting on back, eyes closed, breathing even and unlabored, CPOX in place. Pt has no indication of or complaint of pain or discomfort, call light in reach.
[2022-12-14 05:41] VITALS: BP 152/72
--- NOTE | 2022-12-14 06:04 | NUR ---
IN pt room for rounding. Pt resting on back, eyes closed, breathing evne and unlabored. Pt has no indication of pain or discomfort, call light in reach.
--- NOTE | 2022-12-14 07:22 | NUR ---
RECIEVED BEDSIDE REPORT FROM [facility]. PT IS SLEEPING SOUNDLY, DID NOT WAKE TO OPENING DOOR. BREATHING EVEN AND UNLABORED. NOC RN REPORTED SHE TOLERATED PUDDING WELL OVERNIGHT, ADVANCED TO REGULAR DIET THIS AM. 4 LAP SITES ARE C/D/I.
--- NOTE | 2022-12-14 09:47 | NUR ---
PT IS RESTING IN BED. TOLERATED REGULAR BREAKFAST WELL. NO C/O NAUSEA. PO PAIN MEDICATIONS EFFECTIVE. NO NEEDS AT THIS TIME.
[2022-12-14 09:58] VITALS: BP 130/69
--- NOTE | 2022-12-14 10:46 | NUR ---
PT IS WALKING IN THE LY. INSTRUCTED TO STOP IF SHE FEELS FAINT, LIGHTHEADED, NAUSEOUS, OR PAINFUL. SHE AGREED.
[2022-12-14] MEDS ORDERED: OXYCODON-ACETA1 EAC2 PO (11:15)
[2022-12-14] MEDS ORDERED: ACETAMINOPHEN500 MG PO (11:15)
--- NOTE | 2022-12-14 12:03 | NUR ---
DISCHARGE TEACHING COMPLETE. PHARMACY IN IN ROOM AT THIS TIME. PT VERBALIZED UNDERSTANDING OF PLAN AT THIS TIME.
--- NOTE | 2022-12-16 16:00 | PATH ---
[facility] [address] [facility] [place], [place] [address] Signed SPECIMEN(S): A DUODENAL BIOPSY SPECIMEN(S): B ANTRUM/PYLORUS BIOPSY SPECIMEN(S): C LOWER ESOPHAGEAL BIOPSY SPECIMEN(S): D MIDDLE ESOPHAGEAL BIOPSY SPECIMEN SOURCE: A. DUODENAL BIOPSY B. ANTRUM/PYLORUS BIOPSY C. LOWER ESOPHAGEAL BIOPSY D. MIDDLE ESOPHAGEAL BIOPSY CLINICAL HISTORY: Acute upper epigastric and RUQ abdominal pain. FINAL PATHOLOGIC DIAGNOSIS: A. Duodenal biopsy: - Benign duodenal mucosa, negative for specific diagnostic abnormality. B. Antrum / pylorus biopsy: - Superficial chronic gastritis. - A Helicobacter pylori immunostain is positive for organisms. C. Lower esophageal biopsy: - Benign esophageal mucosa with increased epithelial eosinophils (up to 16 per HPF). - Negative for glandular mucosa. - See comment. D. Mid esophageal biopsy: - Benign esophageal mucosa, negative for increased epithelial eosinophils. COMMENT: Increased epithelial eosinophils at the gastroesophageal junction can be seen with reflux esophagitis and eosinophilic esophagitis. Clinical correlation is requested. JVR:calos:C2NR MICROSCOPIC EXAMINATION: Histologic sections of all submitted blocks are examined by light microscopy. These findings, together with the gross examination, support the pathologic diagnosis. A Helicobacter pylori immunostain is performed with appropriate positive and negative controls on block (B1) and is positive for organisms. JVR:calos PATIENT NAME: ADRINE YEH PATHOLOGY DATE OF : 63 REPORT #: [id number] PHYSICIAN: KEKE PATHOLOGY PCP: CLEM ANGELO MD REPORT IS CONFIDENTIAL AND NOT TO BE RELEASED WITHOUT AUTHORIZATION [facility] [address] [place], [place] [address] Signed GROSS DESCRIPTION: A. The specimen, labeled and designated "Yeh, duodenum biopsy," is received in formalin and consists of two molina soft tissue fragments measuring up to 0.1 cm. Entirely submitted in (A1). B. The specimen, labeled and designated "Yeh, antrum biopsy," is received in formalin and consists of two molina soft tissue fragments, ranging from 0.1-0.2 cm. Entirely submitted in (B1). C. The specimen, labeled and designated "Yeh, lower esophagus biopsy," is received in formalin and consists of one molina soft tissue fragment, 0.5 cm. Entirely submitted in (C1). D. The specimen, labeled and designated "Yeh, middle esophagus biopsy," is received in formalin and consists of one molina soft tissue fragment, 0.2 cm. Entirely submitted in (D1). JS (under the direct supervision of a pathologist) The Gross Description was prepared using a voice recognition system. The report was reviewed for accuracy; however, sound-alike word errors, addition and/or deletions may occur. If there is any question about this report, please contact Client Services. ADDITIONAL NOTES: Immunohistochemical and/or in situ hybridization studies were performed on this case with the appropriate positive controls that react as expected. This test was developed and its performance characteristics determined by [facility]. It has not been cleared or approved by the U.S. Food and Drug Administration. The FDA has determined that such clearance or approval is not necessary. This test is used for clinical purposes. It should not be regarded as investigational or for research. [facility] is certified under the Clinical Laboratory Improvement Amendments of 1988 (CLIA) as qualified to perform high complexity clinical laboratory testing. This assay has not been validated for specimens that have been decalcified. PERFORMING LABORATORY: The technical component was performed by [facility], [address] [place] [address], [place] [address] (CLIA# [id number]). Professional interpretation was performed by [facility], [address] [place], [place] [address]e., [place] [address] (CLIA#: [id number]). Diagnostician: Chicho Brian MD PATIENT NAME: ADRIEN YEH PATHOLOGY DATE OF : 63 REPORT #: [id number] PHYSICIAN: KEKE PATHOLOGY PCP: CLEM ANGELO MD REPORT IS CONFIDENTIAL AND NOT TO BE RELEASED WITHOUT AUTHORIZATION [address] [place] [address] Signed Pathologist Electronically Signed 12/16/2022 Copies: ~ PATIENT NAME: ADRIEN YEH PATHOLOGY DATE OF : 63 REPORT #: [id number] PHYSICIAN: KEKE WHITNEY PCP: CLEM ANGELO MD REPORT IS CONFIDENTIAL AND NOT TO BE RELEASED WITHOUT AUTHORIZATION
--- NOTE | 2022-12-16 18:30 | DS ---
[facility] [address] [place], [place] [address] Signed ADMISSION DATE: 12/13/2022 DISCHARGE DATE: 12/14/2022 REASON FOR ADMISSION: Right upper abdominal pain. HISTORY OF PRESENT ILLNESS: This 57-year-old white woman presented to the emergency room, was evaluated by Dr. Wright with severe epigastric and right subcostal pain. Clinical findings were highly suggestive of acute cholecystitis. The patient has distant history of appendectomy as well as ovarian cystic resection on the right side. The patient has a daughter, who is known to me, who underwent appendectomy and cholecystectomy. After a prolonged workup and found to have acalculous cholecystitis. Emergency room evaluation included lab studies showing a normal white count and liver enzymes and amylase and a CT, which was without sign of stones within the gallbladder and no intrahepatic ductal dilatation though the pancreatic duct was considered slightly dilated at 3 mm. There was no evidence of pancreatitis. An ultrasound was additionally performed which showed no sludge or gallstones. Given her severe tenderness, inability to tolerate oral intake, and so fourth she was admitted to undergo further evaluation. PERTINENT PHYSICAL EXAMINATION: GENERAL: Showed a pleasant white woman who looks uncomfortable but not systemically toxic. HEENT: Trachea is midline. CHEST: Clear. HEART: Regular without murmur. ABDOMEN: Soft and nondistended. There is marked tenderness in the epigastric and right subcostal area. LABORATORY DATA: White count was 10.1, hematocrit 37.1, platelets 203,000, electrolytes normal except for potassium 3.3. Liver enzymes normal. Lactic acid is 1.7. HOSPITAL COURSE: She was admitted, given intravenous fluids and active observation undertaken. Her symptoms are highly suggestive of acalculous cholecystitis. A CCK-HIDA test was performed which showed an ejection fraction of 62% and without reproduction of her symptoms particularly. Mindful of possibility of peptic disease upper endoscopy was Electronically Signed By: ALICIA ROMERO MD 12/16/22 1990 PATIENT NAME: ADRIEN ANTHONY DISCHARGE SUMMARY DATE OF : 63 REPORT #: [id number] PHYSICIAN: ALICIA ROMERO MD PCP: MEGHANA ANGELO MD REPORT IS CONFIDENTIAL AND NOT TO BE RELEASED WITHOUT AUTHORIZATION [facility] [address] [place], [place] [address] Signed performed on December 12, 2022, which was normal. Mindful of the uncertainty of her diagnosis, but additionally aware of her family history with several family members with acalculous cholecystitis in the past she was offered a laparoscopic cholecystectomy. This was performed on December 13, 2022. She was found to have a chronically inflamed, somewhat distended and enlarged gallbladder. Cholangiogram was normal. The mucosa of the gallbladder showed chronic inflammatory change, but no evidence of stones or neoplasm. The following day, she was perfectly fine, tolerating regular diet without her preoperative pain. Incisional pain was well managed with oral analgesics. She was discharged to home in improved condition. DISCHARGE MEDICATIONS: Include: 1. Percocet 7.5/325, one to two p.o. q.6 hours p.r.n. pain #10. 2. Tylenol 500 mg two tablets p.o. q.6 hours as needed for lesser pain #30. She was not prescribed Motrin as she does have allergy to aspirin-like compounds. 3. She will continue usual medication of atorvastatin 20 mg p.o. daily. 4. Ipratropium. 5. Albuterol inhaler four times a day as needed for shortness of breath. 6. Multivitamin one tablet p.o. daily. 7. Incruse Ellipta 62.5 one puff daily, albuterol, Ventolin inhaler two puffs q.4 hours as needed for shortness of breath. DISCHARGE DIAGNOSIS: 1. Severe right subcostal pain, ultimately consistent with acalculous cholecystitis, status post laparoscopic cholecystectomy with intraoperative cholangiogram December 13, 2022. 2. Reactive airways disease, chronic obstructive pulmonary disease. 3. Family history of acalculous cholecystitis and extensive biliary disease. 4. Dyslipidemia. FOLLOWUP PLAN: She will return to see me in approximately four weeks. She will call next week to arrange an appointment in the office. She is to avoid lifting more than 20 pounds for two weeks and to keep Steri-Strips on. Alicia Romero MD Electronically Signed By: ALICIA ROMERO MD 12/16/221829 PATIENT NAME: ADRIEN ANTHONY DISCHARGE SUMMARY DATE OF : 63 REPORT #: [id number] PHYSICIAN: ALICIA ROMERO MD PCP: MEGHANA ANGELO MD REPORT IS CONFIDENTIAL AND NOT TO BE RELEASED WITHOUT AUTHORIZATION [address] [address] Signed ALYCE/JOSEPH /[id number] cc: MD Meghana Davidson MD Copies: MEAGHAN WRIGHT MD ~ Electronically Signed By: ALICIA ROMERO MD 12/16/22 1830 PATIENT NAME: ADRIEN ANTHONY DISCHARGE SUMMARY DATE OF : 63 REPORT #: [id number] PHYSICIAN: ALICIA ROMERO MD PCP: MEGHANA ANGELO MD REPORT IS CONFIDENTIAL AND NOT TO BE RELEASED WITHOUT AUTHORIZATION
--- NOTE | 2022-12-16 18:30 | OR ---
[facility] [place] [facility] [address] [place], [place] [address] Signed DATE OF OPERATION: 12/12/2022 SURGEON: Alicia Romero MD PREOPERATIVE DIAGNOSIS: Persistent right subcostal and epigastric pain, negative workup for biliary disease. POSTOPERATIVE DIAGNOSIS: Normal esophagus, stomach and duodenum. PROCEDURE: Esophagogastroduodenoscopy with biopsy. ANESTHESIA: Intravenous sedation; fentanyl 100 mcg and Versed 3 mg. INDICATION: This 57-year-old white woman was admitted to the hospital having presented to the emergency room with severe subcostal and epigastric pain highly suggestive of acute cholecystitis. Evaluation by Dr. Wright included a CT scan which was negative and an ultrasound showing no stones. She was admitted by me to the hospital, given intravenous fluids, IV antibiotics and a presumptive diagnosis of acalculous cholecystitis. Notably, her daughter had similar presentation in the distant past with a negative workup for the gallbladder, ultimately undergoing cholecystectomy with complete resolution of her symptoms and findings of acute acalculous cholecystitis. Yesterday, she underwent a CCK-HIDA test, which showed an ejection fraction of 62% (normal) and no reproduction of her symptoms with injection of CCK hormone. On that basis, consideration was made this may represent a peptic problem. Notably, she has been treated with Pepcid intravenously since admission. The risk of bleeding, infection, and perforation related to upper endoscopy were reviewed with her. She understands and wished to proceed. FINDINGS: A normal study was noted. The esophagus, stomach and duodenum were normal. Flap valve was normal. Biopsies were taken nevertheless. CLOtest was negative 20 minutes post procedure. DESCRIPTION OF PROCEDURE: The patient was brought to the surgical endoscopy suite and placed in the lateral Electronically Signed By: ALICIA ROMERO MD 12/16/22 1830 PATIENT NAME: ADRIEN ANTHONY OPERATIVE REPORT DATE OF : 63 REPORT #: [id number] PHYSICIAN: ALICIA ROMERO MD PCP: MEGHANA CASIANO MD REPORT IS CONFIDENTIAL AND NOT TO BE RELEASED WITHOUT AUTHORIZATION [facility] [place] [facility] [address] [place], [place] [address] Signed decubitus position, given intravenous sedation to the point of slurred speech and nystagmus with full cardiopulmonary monitoring. Topical lidocaine hypopharyngeal anesthesia had been administered. A bite block was placed. An Olympus video upper endoscope was passed in the hypopharynx. The vocal cords were normal. The scope was advanced to the esophagus, throughout its length it was normal. Scope was passed to the stomach, which was insufflated with air. There was no sign of bile or inflammatory change in any way. There is certainly no sign of ulceration. The pylorus was normal. Scope was passed into the duodenum, which was normal. Biopsies were taken of the duodenum to assess for celiac disease. The scope was withdrawn and no ulcerative changes were noted of the duodenum nor of the antrum. The antrum was biopsied for both LILA and pathologic testing. Retroflexed view confirmed a normal-appearing flap valve. The scope was withdrawn to the distal esophagus where biopsies were obtained of the distal esophageal mucosa and further withdrawn to the midesophagus allowing for biopsy as well. Withdrawal of scope showed no other findings. She was taken to the recovery room in good condition. CONCLUDING DIAGNOSIS: Normal-appearing upper endoscopy. PLAN: Most likely her persistent symptoms are related to acalculous cholecystitis despite the aforementioned workup which is negative. We will offer the patient laparoscopic cholecystectomy on the high probability this will be curative to her symptoms. Additional evaluation of other intra-abdominal organs will be undertaken at that point. The patient has already undergone appendectomy and right ovarian cyst resection in the distant past. MD ALYCE Caldwell/ARIELLAL /[id number] cc: Meghana Casiano MD Electronically Signed By: ALICIA ROMERO MD 12/16/22 1830 PATIENT NAME: ADRIEN ANTHONY OPERATIVE REPORT DATE OF : 63 REPORT #: [id number] PHYSICIAN: ALICIA ROMERO MD PCP: MEGHANA CASIANO MD REPORT IS CONFIDENTIAL AND NOT TO BE RELEASED WITHOUT AUTHORIZATION [facility] [place] [facility] [address] [place] [address] [place], [place] [address] Signed Copies: ~ Electronically Signed By: ALICIA ROMERO MD 12/16/22 183 PATIENT NAME: ADRIEN ANTHONY OPERATIVE REPORT DATE OF : 63 REPORT #: [id number] PHYSICIAN: ALICIA ROMERO MD PCP: MEGHANA CASIANO MD REPORT IS CONFIDENTIAL AND NOT TO BE RELEASED WITHOUT AUTHORIZATION
--- NOTE | 2022-12-16 18:30 | OR ---
[facility] [address] [place], [place] [address] Signed DATE OF OPERATION: 12/13/2022 SURGEON: Alicia Romero MD PREOPERATIVE DIAGNOSIS: Acute acalculous cholecystitis. POSTOPERATIVE DIAGNOSIS: Acute acalculous cholecystitis. PROCEDURES: 1. Laparoscopic cholecystectomy with intraoperative cholangiogram. 2. Surgeon-directed fluoroscopy. ANESTHESIA: General endotracheal; Darek Siemens, [employer], and 10 mL of 0.25% Marcaine with epinephrine. INDICATIONS: This 57-year-old white woman was admitted to the emergency room on 10 December 2022 with severe epigastric and right subcostal pain. Her evaluation in the emergency room included a CT scan, which was normal. An ultrasound following which showed no sign of gallstones. Still her symptoms were highly suggestive of acute cholecystitis. Notably, the patient's daughter is well known to me, who presented in a similar way in the past, ultimately undergoing cholecystectomy curative to her symptoms. The patient was admitted, given intravenous antibiotics and observation, which showed persistence of her symptoms. On that basis, she underwent a CCK-HIDA test which was negative (ejection fraction 62% without reproduction of her symptoms). An upper endoscopy was performed yesterday, which showed absolutely no abnormality of the esophagus, stomach, or duodenum and CLOtest was negative. Given the findings and in light of her family history, I have offered cholecystectomy preferred by laparoscopic approach. The risk of bleeding, infection, bile duct injury, most importantly failure to cure her symptoms was reviewed in detail. She understands and wished to proceed. FINDINGS: The gallbladder was chronically inflamed and floppy. It was not tense, distended, or acutely inflamed particularly. The liver was normal. The stomach and duodenum were normal as well. Intraoperative cholangiography showed no filling defect or distal common duct abnormality particularly. Electronically Signed By: ALICIA ROMERO MD 12/16/22 1830 PATIENT NAME: ADRIEN ANTHONY OPERATIVE REPORT DATE OF : 63 REPORT #: [id number] PHYSICIAN: ALICIA ROMERO MD PCP: CLEM ANGELO MD REPORT IS CONFIDENTIAL AND NOT TO BE RELEASED WITHOUT AUTHORIZATION [facility] [address] [place], [place] [address] Signed DESCRIPTION OF PROCEDURE: The patient was brought to the operating room, given a general endotracheal anesthetic. Preoperative antibiotic Ancef was given in the operating room. The abdomen was prepared with a chlorhexidine solution and draped sterilely after satisfactory general endotracheal anesthesia. Infraumbilical incision was made and using an open Leigh cannula technique, pneumoperitoneum was achieved to a level of 14 mmHg of carbon dioxide gas. Intra-abdominal inspection showed no sign of ascites or carcinomatosis. The gallbladder was floppy and chronically inflamed. Three additional trocars were placed in usual configuration in the subxiphoid, right midclavicular, and right anterior axillary line. The gallbladder was elevated cephalad and retracted laterally. Given her thin body habitus, easy identification of common bile duct and cystic duct was noted. A slightly enlarged pericholecystic lymph node was also noted. Using blunt and electrocautery dissection, the triangle of Calot was dissected free. A dominant cystic arterial branch was doubly clipped and divided as was the subsequent other such branch. Once a critical view of safety was achieved and clear identification of cystic duct undertaken, a clip was applied across gallbladder cystic duct junction. A transverse choledochotomy was made in the cystic duct, which allowed for egress of clear bile. Using the Ku type cholangiocatheter, intraoperative cholangiography was undertaken. Several views were required, ultimately showing opacification of the common bile duct with prompt emptying into the duodenum. There was no filling defects, biliary anomalies, or other problem. Notably, the area in the region of the cystic duct was somewhat hazy as there was some spillage, but there was no obvious proximal ductal problem. The catheter was removed, the cystic duct was triply clipped and divided. The gallbladder dissected free in a retrograde fashion using electrocautery. Gallbladder was placed in an Endobag as there was one small rent in the gallbladder that allowed for some spillage of bile. The gallbladder was extracted through the infraumbilical port site, opened on the back table and found to have chronic inflammatory change, but no sign of stone or neoplasm. Irrigation was undertaken in subhepatic space. There was no sign of bile leak, bleeding, or other problems. Excess irrigation fluid was suctioned free. The trocars removed under direct visualization showing no sign of bleeding. The infraumbilical fascial incision reapproximated with interrupted 0-Vicryl suture. All wounds were infiltrated with 0.25% Marcaine with epinephrine. The skin was then closed with interrupted 3-0 Vicryl. Steri-Strips were applied. The patient was ultimately extubated and transferred to the recovery room in good condition having suffered no complications. Sponge, needle, and instrument counts reported as correct x3. Alicia Romero MD Electronically Signed By: ALICIA ROMERO MD 12/16/22 1830 PATIENT NAME: ADRIEN ANTHONY OPERATIVE REPORT DATE OF : 63 REPORT #: [id number] PHYSICIAN: ALICIA ROMERO MD PCP: CLEM ANGELO MD REPORT IS CONFIDENTIAL AND NOT TO BE RELEASED WITHOUT AUTHORIZATION [address] [place] [address] Signed /JOSEPH /[id number] cc: MD Hira Khan MD Copies: HIRA MONAE MD ~ Electronically Signed By: ALICIA ROMERO MD 12/16/22 1830 PATIENT NAME: ADRIEN ANTHONY OPERATIVE REPORT DATE OF : 63 REPORT #: [id number] PHYSICIAN: ALICIA ROMERO MD PCP: CLEM ANGELO MD REPORT IS CONFIDENTIAL AND NOT TO BE RELEASED WITHOUT AUTHORIZATION
--- NOTE | 2022-12-16 18:30 | HP ---
[facility] [address] [place], [place] [address] Signed ADMISSION DATE: 12/10/2022 TIME: 3:25 p.m. PROBLEM: Severe right upper abdominal pain, probable acalculous cholecystitis. HISTORY OF PRESENT ILLNESS: This is a 57-year-old white woman, who works at the [employer] [place]. She took time off work and presented to the emergency room where she was evaluated by Dr. Wright with severe epigastric and right subcostal pain. The patient has a distant history of appendectomy as well as ovarian cystic resection in the past. Notably, her daughter is known to me having undergone appendectomy and cholecystectomy. Evaluation by Dr. Wright included lab studies showing a normal white count and liver enzymes and amylase. A CT scan was performed, which showed no stones within the gallbladder itself and no intrahepatic ductal dilatation. The pancreatic duct was considered slightly dilated at 3 mm; there is no evidence of acute pancreatitis from a CT scan perspective. PAST MEDICAL HISTORY: Notable for COPD, hypertension as well as hyperlipidemia. She has also had lichen sclerosis syndrome. PAST SURGICAL HISTORY: Include tubal , appendectomy, tonsillectomy, and right ovarian cyst resection. ALLERGIES: She has no known drug allergies. MEDICATIONS: Include albuterol, diclofenac recently discontinued, atorvastatin and ibuprofen. PHYSICAL EXAMINATION: GENERAL: This is a pleasant white woman, who looks somewhat uncomfortable but not systemically toxic. NECK: Trachea is midline. CHEST: Clear. HEART: Regular without murmur. ABDOMEN: Soft and nondistended. There is marked tenderness in the epigastric and to less extent in the right upper quadrant area. Electronically Signed By: ALICIA ROMERO MD 12/16/22 5980 PATIENT NAME: ADRIEN ANTHONY HISTORY AND PHYSICAL DATE OF : 63 REPORT #: [id number] PHYSICIAN: ALICIA ROMERO MD PCP: CLEM ANGELO MD REPORT IS CONFIDENTIAL AND NOT TO BE RELEASED WITHOUT AUTHORIZATION [facility] [address] [place], [place] [address] Signed EXTREMITIES: Show no clubbing, cyanosis, or edema. LAB STUDIES: Show white count of 10.1, hematocrit 37.1, platelets 203,000. Electrolytes are normal except for potassium of 3.3, creatinine is 0.84. Liver enzymes are normal. Lactic acid level is 1.7. ASSESSMENT: The patient has clinical evidence of acute cholecystitis despite CT scan finding showing no sign of acute inflammation. Additional information includes the patient has not smoked in over a year related to underlying COPD. Family history does include influenza A in a daughter in the hospital. An ultrasound was additionally performed, which showed no evidence of stones, but did show pancreatic duct dilatation of 3 mm. Given her clinical findings highly suggestive of acute cholecystitis probably acalculous, I would recommend admission to the hospital, IV fluids and further evaluation and observation. She may require cholecystectomy for acalculous cholecystitis depending on the evolution of her symptoms. The possibility of doing a CCK-HIDA test if the diagnosis remains uncertain would be considered as well. MD ALYCE Caldwell/JOSEPH /[id number] cc: MD Hira Khan MD Copies: HIRA WRIGHT MD ~ Electronically Signed By: ALICIA ROMERO MD 12/16/22 1830 PATIENT NAME: ADRIEN ANTHONY HISTORY AND PHYSICAL DATE OF : 63 REPORT #: [id number] PHYSICIAN: ALICIA ROMERO MD PCP: CLEM ANGELO MD REPORT IS CONFIDENTIAL AND NOT TO BE RELEASED WITHOUT AUTHORIZATION
== END 2022-12-14 12:15 | disposition home or self-care (01) | DRG 419 ==
LOC: ED 09:32 → MS 09:34
PROVIDERS: ADMIT Surgery; ATTEND Surgery
PROC: 0DB68ZX Excision of Stomach, Via Natural or Artificial Opening Endoscopic, Diagnostic (ICD-10-PCS; 2022-12-12)
PROC: 0DB98ZX Excision of Duodenum, Via Natural or Artificial Opening Endoscopic, Diagnostic (ICD-10-PCS; 2022-12-12)
PROC: 0DB38ZX Excision of Lower Esophagus, Via Natural or Artificial Opening Endoscopic, Diagnostic (ICD-10-PCS; 2022-12-12)
PROC: BF502Z0 Other Imaging of Bile Ducts using Fluorescing Agent, Intraoperative (ICD-10-PCS; 2022-12-13)
PROC: 0FT44ZZ Resection of Gallbladder, Percutaneous Endoscopic Approach (ICD-10-PCS; principal; 2022-12-13 13:30)
DX: K81.0 Acute cholecystitis (principal); I10 Essential (primary) hypertension; Z20.822 Contact with and (suspected) exposure to COVID-19; E78.5 Hyperlipidemia, unspecified; J44.9 Chronic obstructive pulmonary disease, unspecified; F17.200 Nicotine dependence, unspecified, uncomplicated; Z90.49 Acquired absence of other specified parts of digestive tract; Z90.89 Acquired absence of other organs; Z98.890 Other specified postprocedural states; Z79.899 Other long term (current) drug therapy
CPT/HCPCS: 36415; 74177; 74300; 76705; 78227; 80053; 83690; 85025; 94640; 94760; 96375; 96376; 99285-25; A9270; A9537; J0690; J1100; J1170; J1200; J1644; J1885; J2001; J2250; J2270; J2405; J2704; J2805; J3010; J3480; J7121; Q9967; U0003

== ENCOUNTER 2022-12-29 09:16 | Emergency (ER) | payer OTHER ==
[~2022-12-29] VITALS: Ht 160 cm; Wt 63.9 kg
[~2022-12-29 09:16] MED LIST changes: +ACETAMINOPHEN500 MG PO; +ALBUTEROL2.5 MG/3 M NEB; +INCRUSE ELLI62.5 MCG IH; +OXYCODON-ACETA1 EAC2 PO
--- OUTSIDE RECORDS SUMMARY | 2022-12-29 09:18 | XMS ---
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 Care History Medical/Surgical 04/12/2020 [facility] Patient seen after clinic hours.\T\nbsp; No follow up visit scheduled at this time. 04/12/2020 [facility] - Patient is currently established with [facility]. If patient is seen in the ED during business hours. Please contact [facility] at [facility]. Care Recommendation: If this patient has had 5 or more Emergency Department visits in the last 12 months.\T\nbsp; Patient will require education on the scope and purpose of the ED as an acute care provider not a Primary Care Provider and should not be utilized for chronic conditions.\T\nbsp; These are guidelines and the provider should exercise clinical judgment when providing care. E.D. VISIT COUNT (12 MO.) 4 [facility]. TOTAL 4 NOTE: Visits indicate total known visits. ED/UCC VISIT TRACKING (12 MO.) 12/29/2022 09:17 [facility] [place] TYPE: Emergency COMPLAINT: - L WRIST INJURY 12/10/2022 09:33 [facility] [place] TYPE: Emergency COMPLAINT: - PAIN UNDER R BREAST RIB CAGE 09/29/2022 10:15 [facility] [place] TYPE: Emergency COMPLAINT: - NECK PAIN/INJURY 01/16/2022 16:33 [facility] [place] TYPE: Emergency COMPLAINT: - DIFFICULTY BREATHING INPATIENT VISIT TRACKING (12 MO.) 12/13/2022 13:50 [facility] [place] TYPE: Medical Surgical COMPLAINT: - ACUTE UPPER EPIGASTRIC AND RIGHT UPPER QUADRANT PA DIAGNOSES: - Acquired absence of other organs - Acquired absence of other organs - Acquired absence of other specified parts of digestive tract - Acquired absence of other specified parts of digestive tract - Acute cholecystitis - Acute cholecystitis - Chronic obstructive pulmonary disease, unspecified - Chronic obstructive pulmonary disease, unspecified - Contact with and (suspected) exposure to COVID-19 - Contact with and (suspected) exposure to COVID-19 - Essential (primary) hypertension - Essential (primary) hypertension - Hyperlipidemia, unspecified - Hyperlipidemia, unspecified - Left upper quadrant pain - Nicotine dependence, unspecified, uncomplicated - Nicotine dependence, unspecified, uncomplicated - Other intermediate card tender (current) drug therapy - Other intermediate card tender (current) drug therapy - Other specified postprocedural states - Other specified postprocedural states 01/16/2022 21:27 [facility] TYPE: Medical Surgical COMPLAINT: - ACUTE EXACERBATION OF COPD, INFLUENZA A DIAGNOSES: - Acquired absence of other specified parts of digestive tract - Acquired absence of other specified parts of digestive tract - Cannabis use, unspecified, uncomplicated - Cannabis use, unspecified, uncomplicated - Chronic obstructive pulmonary disease with (acute) exacerbation - Chronic obstructive pulmonary disease with (acute) exacerbation - Contact with and (suspected) exposure to COVID-19 - Contact with and (suspected) exposure to COVID-19 - Essential (primary) hypertension - Essential (primary) hypertension - Hyperlipidemia, unspecified - Hyperlipidemia, unspecified - Influenza due to identified novel influenza A virus with pneumonia - Influenza due to identified novel influenza A virus with pneumonia - Influenza due to identified novel influenza A virus with pneumonia - custodial (current) use of inhaled steroids - custodial (current) use of inhaled steroids - Migraine, unspecified, not intractable, without status migrainosus - Other intermediate card tender (current) drug therapy - Other intermediate card tender (current) drug therapy - Other specified postprocedural states - Other specified postprocedural states - Personal history of diseases of the skin and subcutaneous tissue - Personal history of diseases of the skin and subcutaneous tissue - Personal history of nicotine dependence - Personal history of nicotine dependence - Tubal ligation status - Tubal ligation status [email or web address]
[2022-12-29 11:08] VITALS: BP 157/99
== END 2022-12-29 11:08 | disposition home or self-care (01) ==
LOC: ED 09:16
DX: S63.502A Unspecified sprain of left wrist, initial encounter (principal); W19.XXXA Unspecified fall, initial encounter; I10 Essential (primary) hypertension; J44.9 Chronic obstructive pulmonary disease, unspecified; E78.5 Hyperlipidemia, unspecified; F17.200 Nicotine dependence, unspecified, uncomplicated; Z88.5 Allergy status to narcotic agent; Z79.899 Other long term (current) drug therapy
CPT/HCPCS: 73110

== ENCOUNTER 2023-09-08 09:27 | Emergency (ER) | payer OTHER ==
[~2023-09-08] VITALS: Ht 160 cm; Wt 62.1 kg
[2023-09-08 09:42] LABS: BASOPHILS 0.6 % (0-2); EOSINOPHILS 2.6 % (0-6); HEMATOCRIT 40.7 % (35.0-50.0); HEMOGLOBIN 13.5 g/dL (12.0-18.0); LYMPHOCYTES 11.2 % (24-44); MCH 29.3 (27-36); MCHC 33.2 g/dl (30-36); MCV 88.3 fl (81-99); MONOCYTES 10.1 % (0-12); NEUTROPHILS 75.5 % (39-80); PLATELET COUNT 251 K/uL (140-440); RBC 4.61 M/ul (4.3-5.7); RDW 13.8 (10.5-15.0)
[2023-09-08] MEDS ORDERED: SERTRALINE HCL50 MG PO (09:48)
[2023-09-08 10:04] LABS: ALBUMIN 3.6 g/dL (3.4-5.0); ALBUMIN/GLOBULIN RATIO 0.97 (1.1-2.4); ANION GAP 12.8 (7-21); BILIRUBIN, TOTAL 0.2 ng/dL (0.2-1.0); BUN/CREATININE RATIO 7.81 (6.0-28.6); CALCIUM 9.1 mg/dL (8.5-10.1); CREATININE, SERUM 0.64 mg/dL (0.55-1.02); POTASSIUM 3.8 mmol/L (3.5-5.1); PROTEIN, TOTAL 7.3 g/dL (6.4-8.2)
[2023-09-08] MEDS ORDERED: IPRAT-ALBUT 0.5-3 ML INH (10:28)
[2023-09-08] MEDS ORDERED: PREDNISONE20 MG PO (10:28)
[2023-09-08 11:06] VITALS: BP 161/80
== END 2023-09-08 11:07 | disposition home or self-care (01) ==
LOC: ED 09:27
PROVIDERS: Emergency Medicine
DX: J44.1 Chronic obstructive pulmonary disease with (acute) exacerbation (principal); I10 Essential (primary) hypertension; E78.5 Hyperlipidemia, unspecified; F17.200 Nicotine dependence, unspecified, uncomplicated; Z88.5 Allergy status to narcotic agent; Z79.899 Other long term (current) drug therapy
CPT/HCPCS: 36415; 71045; 80053; 85025; 94640; 96374; 99285-25; J2930

== ENCOUNTER 2025-02-18 07:27 | Emergency (ER) | payer OTHER ==
[~2025-02-18] VITALS: Ht 160 cm; Wt 70.0 kg
[~2025-02-18 07:27] MED LIST changes: +SERTRALINE HCL50 MG PO
[2025-02-18] MEDS ORDERED: PREDNISONE20 MG PO (07:41)
[2025-02-18 07:48] VITALS: BP 136/81
== END 2025-02-18 07:48 | disposition home or self-care (01) ==
LOC: ED 07:27
DX: J44.1 Chronic obstructive pulmonary disease with (acute) exacerbation (principal); J06.9 Acute upper respiratory infection, unspecified; I10 Essential (primary) hypertension; E78.5 Hyperlipidemia, unspecified; F17.200 Nicotine dependence, unspecified, uncomplicated; Z88.8 Allergy status to other drugs, medicaments and biological substances
CPT/HCPCS: 99284